=== PATIENT | male | born 1960 | race Two or more races ===

== ENCOUNTER 2017-08-03 13:09 | Emergency (ER) | payer MEDICAID ==
[~2017-08-03] VITALS: Ht 170.2 cm; Wt 77.1 kg
[2017-08-03] MEDS ORDERED: LEVE100023 PO (13:46)
[2017-08-03] MEDS ORDERED: MULT1TAB73 PO (13:46)
[2017-08-03] MEDS ORDERED: HYDR453. TP (13:46)
[2017-08-03] MEDS ORDERED: DIPH25CA83 PO (13:46)
[2017-08-03] MEDS ORDERED: ACET325T53 PO (13:46)
[2017-08-03] MEDS ORDERED: PHEN100C4 PO (13:46)
[2017-08-03] MEDS ORDERED: THIA100T13 PO (13:46)
[2017-08-03] MEDS ORDERED: NICO-670 TD (13:46)
[2017-08-03] MEDS ORDERED: FOLI1TAB16 PO (13:46)
[2017-08-03] MEDS ORDERED: LACO200T2 PO (13:46)
[2017-08-03 16:25] LABS: *BILIRUBIN,URIN NEGATIVE (NEGATIVE); *BLOOD, URINE 3+ (NEGATIVE); *CLARITY,URINE SLIGHTLY CLOUDY (CLEAR); *COLOR,URINE YELLOW (YELLOW); *KETONES,URINE NEGATIVE (NEGATIVE); *PROTEIN,URINE 2+ (NEGATIVE); *UROBILINOGEN,URINE 0.2 E.U./dl (NORMAL); LEUKOCYTE ESTERASE ,URINE 3+ (NEGATIVE); NITRITE, URINE POSITIVE (NEGATIVE); PH,URINE 8.5 (5.0-8.0); UGLUCOSE NEGATIVE (NEGATIVE)
--- NOTE | 2017-08-03 16:45 | NUR ---
AMBULANCE CALLED TRIP NO [id number] QUENCHER OPERATOR [id number]
[2017-08-03 16:55] LABS: BACTERIA,URINE FEW /HPF (NONE SEEN); RBC,URINE 20-50 /HPF (0-3); SQUAMOUS EPITHELIAL CELL,UR FEW /HPF (NONE SEEN)
--- NOTE | 2017-08-03 19:55 | NUR ---
MSE COMPLETED, DR SPENCER CHANGED THE SUPRAPUBIC FOWLEY, I THEN REDRESSED SITE, PLACED A NEW LEG BAG. PT WAS THEN RETURNED TO [facility] VIA AMBULANZE. REPORT GIVEN TO EMT'S, ALSO ACI/RX X1 AND SUMMRY REPORT. PT TOOK ALL BELONGINGS. CALLED [facility] TO GIVE REPORT AT [phone] NO ANSWER AND MAILBOX/MESSAGES FULL.
[2017-08-03 19:58] VITALS: BP 114/85
--- NOTE | 2017-08-07 10:47 | NUR ---
Pt Urine Cx Results came back positive. Results were discussed with . Pt was contacted at [facility]. Pt nurse Britt states that pt is completely asymptomatic. went over the results and antibiotic requirements. Nurse was informed to bring the pt back if pt becomes symptomatic, pt would need IV antibiotic in that case.
[2017-08-19] MEDS ORDERED: CEPH-570 PO (20:40)
[2017-08-23] MEDS ORDERED: AMPI500C11 PO (11:46)
[2017-08-23] MEDS ORDERED: CIPR-262 PO (11:46)
== END 2017-08-03 19:59 | disposition home or self-care (01) ==
LOC: ER 13:13
DX: T83.098A Other mechanical complication of other urinary catheter, initial encounter (principal); N39.0 Urinary tract infection, site not specified; Z79.899 Other long term (current) drug therapy
CPT/HCPCS: 51702; 87077; 87086; A4663

== ENCOUNTER 2017-11-15 18:43 | Inpatient (IN) | payer MEDICAID ==
[~2017-11-15] VITALS: Ht 170.2 cm; Wt 61.2 kg
[~2017-11-15 18:43] MED LIST: ACET325T53 PO; AMPI500C11 PO; CIPR-262 PO; DIPH25CA83 PO; FOLI1TAB16 PO; HYDR453. TP; LACO200T2 PO; LEVE100023 PO; MULT1TAB73 PO; NICO-670 TD; PHEN100C4 PO; THIA100T13 PO
[2017-11-15] MEDS ORDERED: QUET25TA PO (19:03)
[2017-11-15] MEDS ORDERED: CYAN10009 PO (19:03)
[2017-11-15] MEDS ORDERED: PHEN100C4 PO ×2 (19:03)
[2017-11-15] MEDS ORDERED: MULT-661 PO (19:03)
[2017-11-15 19:40] LABS: BASOPHILS # (AUTO) 0.1 K/uL (0.0-8.0); BASOPHILS % (AUTO) 0.7 % (0.0-2.0); EOSINOPHILS # (AUTO) 0.1 K/uL (0.0-0.7); HEMATOCRIT 38.6 % (36.7-47.1); HEMOGLOBIN 12.8 g/dL (12.5-16.3); LYMPHOCYTES # (AUTO) 1.3 K/uL (20.0-40.0); LYMPHOCYTES % (AUTO) 14.1 % (20.5-51.5); MEAN CORPUSCULAR HEMOGLOBIN 28.6 uug (23.8-33.4); MEAN CORPUSCULAR HGB CONC 33 g/dL (32.5-36.3); MEAN CORPUSCULAR VOLUME 86.6 fL (73.0-96.2); MONOCYTES # (AUTO) 0.7 K/uL (2.0-10.0); MONOCYTES % (AUTO) 7.2 % (0.0-11.0); NEUTROPHILS # (AUTO) 7.1 K/uL (1.8-8.9); PLATELET COUNT (AUTO) 339 K/uL (152-348); RED BLOOD CELL COUNT(AUTO) 4.46 MIL/uL (4.06-5.63); WHITE BLOOD COUNT (AUTO) 9.2 K/uL (3.6-10.2)
[2017-11-15 19:54] LABS: POTASSIUM 3.8 mmol/L (3.5-5.1)
[2017-11-15 20:00] LABS: BILIRUBIN,DIRECT 0.1 mg/dL (0.0-0.2); BILIRUBIN,TOTAL 0.3 mg/dL (0.2-1.0); TOTAL PROTEIN, SERUM 8.2 g/dL (6.4-8.2)
[2017-11-15] MEDS ORDERED: MORPHINE SULFATE 4 MG/1 ML DISP.SYRIN ONE (20:11)
[2017-11-15] MEDS ORDERED: ONDANSETRON 4 MG/2 ML VIAL ONE (20:11)
[2017-11-15] MEDS ORDERED: ONDANSETRON 4 MG/2 ML VIAL IV ONE (20:15)
[2017-11-15] MEDS ORDERED: MORPHINE SULFATE 4 MG/1 ML DISP.SYRIN IV ONE (20:15)
[2017-11-15 21:46] LABS: *BILIRUBIN,URIN NEGATIVE (NEGATIVE); *BLOOD, URINE 1+ (NEGATIVE); *CLARITY,URINE CLOUDY (CLEAR); *COLOR,URINE YELLOW (YELLOW); *KETONES,URINE NEGATIVE (NEGATIVE); *PROTEIN,URINE 2+ (NEGATIVE); *UROBILINOGEN,URINE 0.2 E.U./dl (NORMAL); LEUKOCYTE ESTERASE ,URINE 3+ (NEGATIVE); NITRITE, URINE POSITIVE (NEGATIVE); PH,URINE 7.5 (5.0-8.0); UGLUCOSE NEGATIVE (NEGATIVE)
[2017-11-15 22:03] LABS: BACTERIA,URINE MANY /HPF (NONE SEEN); WBC,URINE 80-100 /HPF (0-3)
[2017-11-15 22:04] LABS: TRIPLE PHOSPHATE CRYSTAL,UR MODERATE /HPF (NONE SEEN)
[2017-11-15] MEDS ORDERED: CEFTRIAXONE 1 G in IV DEXTROSE 5% 50 ML IV ONE (22:15)
[2017-11-15] MEDS ORDERED: CEFTRIAXONE 1 G VIAL ONE (22:21)
[2017-11-15 23:34] VITALS: BP 114/77
[2017-11-16] MEDS: diphenhydrAMINE 25 MG CAP PO PRN (01:43)
[2017-11-16 06:20] LABS: CREATININE 1.1 mg/dL (0.6-1.3); POTASSIUM 3.8 mmol/L (3.5-5.1)
[2017-11-16 06:25] LABS: BASOPHILS % (AUTO) 0.5 % (0.0-2.0); EOSINOPHILS # (AUTO) 0.1 K/uL (0.0-0.7); EOSINOPHILS % (AUTO) 1.7 % (0.0-7.0); HEMATOCRIT 37.5 % (36.7-47.1); HEMOGLOBIN 12.6 g/dL (12.5-16.3); LYMPHOCYTES # (AUTO) 1.2 K/uL (20.0-40.0); LYMPHOCYTES % (AUTO) 20.6 % (20.5-51.5); MEAN CORPUSCULAR HEMOGLOBIN 28.6 uug (23.8-33.4); MEAN CORPUSCULAR HGB CONC 34 g/dL (32.5-36.3); MEAN CORPUSCULAR VOLUME 85.4 fL (73.0-96.2); MONOCYTES # (AUTO) 0.6 K/uL (2.0-10.0); NEUTROPHILS # (AUTO) 3.8 K/uL (1.8-8.9); NEUTROPHILS % (AUTO) 66.2 % (38.5-71.5); PLATELET COUNT (AUTO) 312 K/uL (152-348)
[2017-11-16 06:26] LABS: WHITE BLOOD COUNT (AUTO) 5.8 K/uL (3.6-10.2)
[2017-11-16] MEDS ORDERED: diphenhydrAMINE 25 MG CAP PO PRN (07:15)
[2017-11-16] MEDS ORDERED: HYDROCORTISONE 1% CREAM 30 GM TUBE TP PRN (07:15)
[2017-11-16] MEDS: MULTIVITAMINS,THERAPEUTIC TABLET PO SCH (08:48)
[2017-11-16] MEDS: LEVETIRACETAM 500 MG TABLET PO SCH ×2 (08:48→20:30)
[2017-11-16] MEDS: LACOSAMIDE 50 MG TABLET PO SCH ×2 (08:48→20:30)
[2017-11-16] MEDS: ACETAMINOPHEN 325 MG TABLET PO PRN (08:48)
[2017-11-16] MEDS: FOLIC ACID 1 MG TABLET PO SCH (08:48)
[2017-11-16] MEDS: CYANOCOBALAMIN 1,000 MCG TABLET PO SCH (08:49)
[2017-11-16] MEDS: PHENYTOIN SODIUM EXTENDED 100 MG CAPSULE.SA PO SCH ×2 (09:32→20:30)
[2017-11-16 11:01] VITALS: BP 99/50
[2017-11-16 12:22] LABS: *BILIRUBIN,URIN NEGATIVE (NEGATIVE); *BLOOD, URINE 3+ (NEGATIVE); *CLARITY,URINE TURBID (CLEAR); *COLOR,URINE YELLOW (YELLOW); *KETONES,URINE NEGATIVE (NEGATIVE); *PROTEIN,URINE 2+ (NEGATIVE); *UROBILINOGEN,URINE 0.2 E.U./dl (NORMAL); LEUKOCYTE ESTERASE ,URINE 3+ (NEGATIVE); NITRITE, URINE POSITIVE (NEGATIVE); PH,URINE 7.5 (5.0-8.0); UGLUCOSE NEGATIVE (NEGATIVE)
[2017-11-16 12:43] LABS: BACTERIA,URINE MANY /HPF (NONE SEEN); SQUAMOUS EPITHELIAL CELL,UR FEW /HPF (NONE SEEN); WBC,URINE TNTC /HPF (0-3)
[2017-11-16 12:44] LABS: *CREATININE,URINE 161.9 mg/dL (30-125); *URINE TOTAL PROTEIN RANDOM 171.4 mg/dL (<150/24HR); RBC,URINE 20-50 /HPF (0-3); TRIPLE PHOSPHATE CRYSTAL,UR MODERATE /HPF (NONE SEEN)
[2017-11-16 15:02] VITALS: BP 96/48
[2017-11-16 19:18] VITALS: BP 108/65
[2017-11-16] MEDS: QUETIAPINE FUMARATE 25 MG TABLET PO SCH (20:30)
[2017-11-16] MEDS: MUPIROCIN 2% OINT 22 GM TUBE NS SCH (20:31)
[2017-11-16] MEDS: CEFTRIAXONE 1 G in IV DEXTROSE 5% 50 ML IV SCH ×2 (22:10→22:30)
[2017-11-16] MEDS ORDERED: CEFTRIAXONE 2 G in IV DEXTROSE 5% 100 ML IV SCH (22:30)
[2017-11-17] MEDS: ACETAMINOPHEN 325 MG TABLET PO PRN ×3 (01:19→23:41)
[2017-11-17] MEDS: LACOSAMIDE 50 MG TABLET PO SCH ×2 (08:16→20:19)
[2017-11-17] MEDS: MULTIVITAMINS,THERAPEUTIC TABLET PO SCH (08:17)
[2017-11-17] MEDS: PHENYTOIN SODIUM EXTENDED 100 MG CAPSULE.SA PO SCH ×2 (08:17→20:19)
[2017-11-17] MEDS: CYANOCOBALAMIN 1,000 MCG TABLET PO SCH (08:17)
[2017-11-17] MEDS: LEVETIRACETAM 500 MG TABLET PO SCH ×2 (08:17→20:19)
[2017-11-17] MEDS: FOLIC ACID 1 MG TABLET PO SCH (08:17)
[2017-11-17] MEDS: MUPIROCIN 2% OINT 22 GM TUBE NS SCH ×2 (08:18→20:20)
[2017-11-17 11:30] VITALS: BP 93/50
[2017-11-17 19:00] VITALS: BP 103/53
[2017-11-17] MEDS: QUETIAPINE FUMARATE 25 MG TABLET PO SCH (20:19)
[2017-11-17] MEDS ORDERED: IV NS 1000 ML 1,000 ML IV PRN (21:15)
[2017-11-17] MEDS: diphenhydrAMINE 25 MG CAP PO PRN (21:27)
[2017-11-17] MEDS ORDERED: LEVOFLOXACIN 500 MG TABLET PO SCH (21:45)
[2017-11-18] MEDS ORDERED: HYDROMORPHONE 2 MG/1 ML DISP.SYRIN IV PRN (01:30)
[2017-11-18] MEDS: HYDROMORPHONE 2 MG/1 ML DISP.SYRIN IM PRN ×2 (01:48→09:15)
[2017-11-18 04:00] VITALS: BP 102/69
[2017-11-18] MEDS: ACETAMINOPHEN 325 MG TABLET PO PRN (05:50)
[2017-11-18] MEDS: LACOSAMIDE 50 MG TABLET PO SCH (09:08)
[2017-11-18] MEDS: LEVETIRACETAM 500 MG TABLET PO SCH (09:09)
[2017-11-18] MEDS: CYANOCOBALAMIN 1,000 MCG TABLET PO SCH (09:09)
[2017-11-18] MEDS: MULTIVITAMINS,THERAPEUTIC TABLET PO SCH (09:09)
[2017-11-18] MEDS: PHENYTOIN SODIUM EXTENDED 100 MG CAPSULE.SA PO SCH (09:09)
[2017-11-18] MEDS: FOLIC ACID 1 MG TABLET PO SCH (09:09)
[2017-11-18] MEDS: MUPIROCIN 2% OINT 22 GM TUBE NS SCH (09:16)
[2017-11-18 11:19] VITALS: BP 99/48
[2017-11-18] MEDS ORDERED: AMOX-430 PO (14:50)
== END 2017-11-18 15:02 | DRG 466 ==
LOC: ER 18:45 → MED 23:16
PROVIDERS: ADMIT Internal Medicine Nephrology; ATTEND Internal Medicine
PROC: 0T9B70Z Drainage of Bladder with Drainage Device, Via Natural or Artificial Opening (ICD-10-PCS; principal; 2017-11-17)
DX: T83.098A Other mechanical complication of other urinary catheter, initial encounter (principal); G93.41 Metabolic encephalopathy; J94.2 Hemothorax; F03.90 Unspecified dementia, unspecified severity, without behavioral disturbance, psychotic disturbance, mood disturbance, and anxiety; N39.0 Urinary tract infection, site not specified; G40.909 Epilepsy, unspecified, not intractable, without status epilepticus; J47.9 Bronchiectasis, uncomplicated; N13.2 Hydronephrosis with renal and ureteral calculous obstruction; Z87.820 Personal history of traumatic brain injury; Z22.322 Carrier or suspected carrier of Methicillin resistant Staphylococcus aureus; Z90.2 Acquired absence of lung [part of]; Z79.899 Other long term (current) drug therapy; S22.069D Unspecified fracture of T7-T8 vertebra, subsequent encounter for fracture with routine healing; S22.079D Unspecified fracture of T9-T10 vertebra, subsequent encounter for fracture with routine healing; S22.089D Unspecified fracture of T11-T12 vertebra, subsequent encounter for fracture with routine healing; X58.XXXD Exposure to other specified factors, subsequent encounter; T83.028A Displacement of other urinary catheter, initial encounter; B95.2 Enterococcus as the cause of diseases classified elsewhere
CPT/HCPCS: 36415; 70030-TC; 71045; 71250; 76770; 83605; 84156; 84300; 85025; 85730; 87040; 87077; 87086; 93005; A4217; A4663; J0696; J1170; J2270; J2405; J7030; J7040; J7060; Q0163

== ENCOUNTER 2017-12-10 22:53 | Inpatient (IN) | payer MEDICAID ==
[~2017-12-10] VITALS: Ht 167.6 cm; Wt 56.7 kg
[~2017-12-10 22:53] MED LIST changes: +AMOX-430 PO; -AMPI500C11 PO; -CIPR-262 PO; +CYAN10009 PO; +MULT-661 PO; -MULT1TAB73 PO; -NICO-670 TD; +QUET25TA PO; -THIA100T13 PO
--- NOTE | 2017-12-10 23:12 | NUR ---
DR. FIELDS AT BEDSIDE FOR MSE.
[2017-12-10] MEDS ORDERED: THIA100T13 PO (23:22)
[2017-12-11 00:05] LABS: BASOPHILS % (AUTO) 0.3 % (0.0-2.0); EOSINOPHILS # (AUTO) 0.2 K/uL (0.0-0.7); EOSINOPHILS % (AUTO) 3.4 % (0.0-7.0); HEMATOCRIT 40.3 % (36.7-47.1); HEMOGLOBIN 13.3 g/dL (12.5-16.3); LYMPHOCYTES # (AUTO) 1.7 K/uL (20.0-40.0); LYMPHOCYTES % (AUTO) 28.2 % (20.5-51.5); MEAN CORPUSCULAR HEMOGLOBIN 28.3 uug (23.8-33.4); MEAN CORPUSCULAR HGB CONC 33 g/dL (32.5-36.3); MONOCYTES # (AUTO) 0.6 K/uL (2.0-10.0); MONOCYTES % (AUTO) 9.4 % (0.0-11.0); NEUTROPHILS # (AUTO) 3.5 K/uL (1.8-8.9); NEUTROPHILS % (AUTO) 58.7 % (38.5-71.5); PLATELET COUNT (AUTO) 311 K/uL (152-348); RED BLOOD CELL COUNT(AUTO) 4.68 MIL/uL (4.06-5.63); WHITE BLOOD COUNT (AUTO) 5.9 K/uL (3.6-10.2)
[2017-12-11 00:35] LABS: BILIRUBIN,DIRECT 0.1 mg/dL (0.0-0.2); BILIRUBIN,TOTAL 0.3 mg/dL (0.2-1.0); POTASSIUM 4.2 mmol/L (3.5-5.1)
[2017-12-11] MEDS ORDERED: IV NORMAL SALINE 1000 ML BAG IV ONE (00:45)
[2017-12-11 00:51] LABS: *BILIRUBIN,URIN NEGATIVE (NEGATIVE); *BLOOD, URINE 2+ (NEGATIVE); *CLARITY,URINE CLOUDY (CLEAR); *COLOR,URINE YELLOW (YELLOW); *KETONES,URINE NEGATIVE (NEGATIVE); *PROTEIN,URINE 2+ (NEGATIVE); *UROBILINOGEN,URINE 0.2 E.U./dl (NORMAL); LEUKOCYTE ESTERASE ,URINE 2+ (NEGATIVE); NITRITE, URINE POSITIVE (NEGATIVE); PH,URINE 8.5 (5.0-8.0); UGLUCOSE NEGATIVE (NEGATIVE)
[2017-12-11 01:02] LABS: BACTERIA,URINE MODERATE /HPF (NONE SEEN); SQUAMOUS EPITHELIAL CELL,UR FEW /HPF (NONE SEEN); YEAST,URINE MODERATE /HPF (NONE SEEN)
[2017-12-11] MEDS ORDERED: HALOPERIDOL LACTATE 5 MG/1 ML VIAL ONE (01:30)
[2017-12-11] MEDS ORDERED: HALOPERIDOL LACTATE 5 MG/1 ML VIAL IM ONE (01:45)
[2017-12-11] MEDS ORDERED: CEFTRIAXONE 1 G in IV DEXTROSE 5% 50 ML IV ONE (01:45)
--- NOTE | 2017-12-11 01:48 | NUR ---
DR. GARNETT GROUP PAGED, DR. CARLOTA CHUA POOL NURSE, DR. CHUA WAS PAGED, AWAITING CALL BACK.
[2017-12-11] MEDS ORDERED: CEFTRIAXONE 1 G VIAL ONE (01:51)
--- NOTE | 2017-12-11 02:29 | NUR ---
Pt. admitted to MED/SURGE , under care of Dr. CHUA Belongs List completed. REPORT GIVEN TO JENI CHANG.
[2017-12-11] MEDS ORDERED: MORPHINE SULFATE 4 MG/1 ML DISP.SYRIN ONE (02:51)
[2017-12-11] MEDS ORDERED: MORPHINE SULFATE 4 MG/1 ML DISP.SYRIN IV ONE (03:00)
[2017-12-11 03:48] VITALS: BP 104/62
[2017-12-11] MEDS ORDERED: HYDROCODONE/APAP 5-325MG TABLET PO PRN (04:00)
[2017-12-11] MEDS ORDERED: ONDANSETRON 4 MG/2 ML VIAL IV PRN (04:00)
[2017-12-11] MEDS ORDERED: ACETAMINOPHEN 325 MG TABLET PO PRN ×2 (04:00→07:00)
--- NOTE | 2017-12-11 04:00 | NUR ---
RECEIVED PT FROM ER [facility]IA [facility]. UNDER THE CARE OF DR. CARLOTA CHUA. DX: UTI/ABDOMINAL PAIN. PT SHOWS NO SIGNS OF DISTRESS. PT IV INTACT.BELONGING LIST DONE. INTERMEDIATE ASSESSMENT DONE.ADMISSION PROCESS AND CARE PLAN DONE. SAFETY AND COMFORT PROVIDED. CALL LIGHT WITHIN REACH. BED ALARM ON AND IN LOW POSITION. WILL CONTINUE TO MONITOR.
--- NOTE | 2017-12-11 06:28 | NUR ---
PT SLEPT INTERMITTENTLY. PT SHOWS NO SIGNS OF DISTRESS. IV INTACT AND PATENT. SAFETY AND COMFORT PROVIDED. WILL ENDORSE TO DAYSHIFT NURSE FOR CONTINUITY OF CARE.
[2017-12-11] MEDS ORDERED: HYDROCORTISONE 1% CREAM 30 GM TUBE TP PRN (07:00)
[2017-12-11] MEDS ORDERED: diphenhydrAMINE 25 MG CAP PO PRN (07:00)
--- NOTE | 2017-12-11 07:15 | NUR ---
RECEIVED PATIENT IN BED ASLEEP, APPEARS COMFORTABLE. NO ACUTE DISTRESS NOTED. IV ACCESS ON LFA #20 INTACT AND PATENT. SUPRAPUBIC CATH IN PLACE ATTACHED TO URINE BAG, FLOWING FREELY. COMFORT MEASURES PROVIDED. WILL CONTINUE TO MONITOR CLOSELY.
[2017-12-11 07:37] LABS: BASOPHILS # (AUTO) 0.1 K/uL (0.0-8.0); BASOPHILS % (AUTO) 1.2 % (0.0-2.0); EOSINOPHILS # (AUTO) 0.2 K/uL (0.0-0.7); EOSINOPHILS % (AUTO) 3.6 % (0.0-7.0); HEMATOCRIT 37.9 % (36.7-47.1); HEMOGLOBIN 12.4 g/dL (12.5-16.3); LYMPHOCYTES # (AUTO) 1.7 K/uL (20.0-40.0); LYMPHOCYTES % (AUTO) 30.9 % (20.5-51.5); MEAN CORPUSCULAR HEMOGLOBIN 28.7 uug (23.8-33.4); MEAN CORPUSCULAR HGB CONC 33 g/dL (32.5-36.3); MEAN CORPUSCULAR VOLUME 87.9 fL (73.0-96.2); MONOCYTES # (AUTO) 0.5 K/uL (2.0-10.0); MONOCYTES % (AUTO) 9.6 % (0.0-11.0); NEUTROPHILS % (AUTO) 54.7 % (38.5-71.5); PLATELET COUNT (AUTO) 160 K/uL (152-348); RED BLOOD CELL COUNT(AUTO) 4.31 MIL/uL (4.06-5.63); WHITE BLOOD COUNT (AUTO) 5.4 K/uL (3.6-10.2)
[2017-12-11 07:45] LABS: CREATININE 0.8 mg/dL (0.6-1.3); POTASSIUM 3.9 mmol/L (3.5-5.1)
[2017-12-11] MEDS ORDERED: CEFTRIAXONE 1 G VIAL IM SCH (09:00)
[2017-12-11] MEDS: FOLIC ACID 1 MG TABLET PO SCH (09:56)
[2017-12-11] MEDS: THIAMINE HCL 100 MG TABLET PO SCH (09:56)
[2017-12-11] MEDS: PHENYTOIN SODIUM EXTENDED 100 MG CAPSULE.SA PO SCH ×2 (09:57→21:00)
[2017-12-11] MEDS: LEVETIRACETAM 500 MG TABLET PO SCH ×2 (09:57→21:00)
[2017-12-11] MEDS: LACOSAMIDE 50 MG TABLET PO SCH ×2 (09:57→21:00)
[2017-12-11] MEDS: MULTIVITAMINS,THERAPEUTIC TABLET PO SCH (09:57)
[2017-12-11 11:15] VITALS: BP 90/55
[2017-12-11 15:24] VITALS: BP 98/59
--- NOTE | 2017-12-11 18:09 | NUR ---
PATIENT RESISTING IN BED, APPEARS COMFORTABLE. NO ACUTE DISTRESS NOTED. SUPRAPUBIC CATH ATTACHED TO URINE BAG IN PLACE DRAINING WELL. IV SITE INTACT NAD PATENT. ALL NEEDS ATTENDED AND ANTICIPATED. WILL CONTINUE TO MONITOR CLOSELY.
--- NOTE | 2017-12-11 19:45 | NUR ---
Observed to be resting in bed at this time, easily arousable via verbal and tactile stimuli. pt AAO x 2. No s/s of acute distress. Seizure precautions initiated. Safe environment implemented. Call light within reach.
[2017-12-11 20:22] VITALS: BP 99/64
[2017-12-11] MEDS: QUETIAPINE FUMARATE 25 MG TABLET PO SCH (20:48)
--- NOTE | 2017-12-11 21:00 | NUR ---
Pt noted to be easily agitated and refusing seizure medications at this time (Phenytoin, Levetiracetam, Vimpat) Pt deescalated and educated on medications, but still refusing. Will retry to administer medications again later and closely monitor.
--- NOTE | 2017-12-11 23:55 | NUR ---
Pt ambulating around the hallways of unit. Still agitated and refusing to take medications. Pt escorted back to room and safe environment implemented. Will continue to monitor closely.
[2017-12-12] MEDS: CEFTRIAXONE 1 G in IV DEXTROSE 5% 50 ML IV SCH ×2 (01:38→02:53)
--- NOTE | 2017-12-12 01:44 | NUR ---
Pt continues to remain uncooperative with all care. Pt easily agitated and refusing all medications. Pt attempted to deescalate, but keeps insisting to be left alone.
--- NOTE | 2017-12-12 03:00 | NUR ---
Approached by patient and allowed me to administer Rocephin IV. Safe environment implemented.
[2017-12-12 04:25] VITALS: BP 94/65
[2017-12-12 05:43] LABS: EOSINOPHILS # (AUTO) 0.2 K/uL (0.0-0.7); EOSINOPHILS % (AUTO) 3.4 % (0.0-7.0); HEMATOCRIT 36.9 % (36.7-47.1); HEMOGLOBIN 12.2 g/dL (12.5-16.3); LYMPHOCYTES # (AUTO) 1.3 K/uL (20.0-40.0); LYMPHOCYTES % (AUTO) 26.7 % (20.5-51.5); MEAN CORPUSCULAR HEMOGLOBIN 28.3 uug (23.8-33.4); MEAN CORPUSCULAR HGB CONC 33 g/dL (32.5-36.3); MEAN CORPUSCULAR VOLUME 85.6 fL (73.0-96.2); MONOCYTES # (AUTO) 0.5 K/uL (2.0-10.0); MONOCYTES % (AUTO) 9.7 % (0.0-11.0); NEUTROPHILS # (AUTO) 2.9 K/uL (1.8-8.9); NEUTROPHILS % (AUTO) 59.2 % (38.5-71.5); PLATELET COUNT (AUTO) 268 K/uL (152-348); RED BLOOD CELL COUNT(AUTO) 4.31 MIL/uL (4.06-5.63); WHITE BLOOD COUNT (AUTO) 4.9 K/uL (3.6-10.2)
[2017-12-12 05:57] LABS: BILIRUBIN,TOTAL 0.3 mg/dL (0.2-1.0); MAGNESIUM 1.5 mg/dL (1.8-2.4); PHOSPHOROUS 3.1 mg/dL (2.5-4.9); POTASSIUM 3.9 mmol/L (3.5-5.1)
--- NOTE | 2017-12-12 06:24 | NUR ---
Stable condition. Seizure precaution measures initiated. Safe environment at all times. Call light within reach.
[2017-12-12] MEDS: MULTIVITAMINS,THERAPEUTIC TABLET PO SCH ×2 (08:52→12:42)
[2017-12-12] MEDS: FOLIC ACID 1 MG TABLET PO SCH ×2 (08:52→12:43)
[2017-12-12] MEDS: THIAMINE HCL 100 MG TABLET PO SCH ×2 (08:52→12:42)
[2017-12-12] MEDS: LACOSAMIDE 50 MG TABLET PO SCH ×3 (08:52→20:06)
[2017-12-12] MEDS: PHENYTOIN SODIUM EXTENDED 100 MG CAPSULE.SA PO SCH ×3 (08:52→20:06)
[2017-12-12] MEDS: LEVETIRACETAM 500 MG TABLET PO SCH ×3 (08:52→20:06)
[2017-12-12] MEDS ORDERED: CEFTRIAXONE 1 G VIAL IM SCH (09:00)
--- NOTE | 2017-12-12 09:25 | NUR ---
pt refused to take his morning Meds made aware
[2017-12-12] MEDS: MAGNESIUM SULFATE/D5W 100 ML IV SCH ×2 (11:45→11:58)
[2017-12-12 12:35] VITALS: BP 90/60
[2017-12-12 15:09] VITALS: BP 95/64
[2017-12-12 19:00] VITALS: BP 94/58
--- NOTE | 2017-12-12 19:20 | NUR ---
RECEIVED PATIENT ROAMING AROUND THE HALLWAY. AOX1 ONLY. SLIGHTLY ANXIOUS WHEN ASKED A QUESTION. CALM DOWN WHEN LEFT ALONE. IN NO ACUTE DISTRESS. DENIES ANY PAIN OR SOB. IV SITE ON LEFT FA INTACT AND PATENT. SAFETY MEASURE INITIATED.
[2017-12-12] MEDS: QUETIAPINE FUMARATE 25 MG TABLET PO SCH (20:06)
[2017-12-13] MEDS: CEFTRIAXONE 1 G in IV DEXTROSE 5% 50 ML IV SCH (01:16)
[2017-12-13 04:00] VITALS: BP 91/60
--- NOTE | 2017-12-13 06:15 | NUR ---
AOX1 ONLY. ABLE TO MAKE NEEDS KNOWN. SUPRAPUBIC CATHETER REMAINS INTACT AND DRAINING. LEG BAG IN PLACE. PATIENT ABLE TO DRAIN OWN URINARY BAG. DENIES ANY PAIN OR SOB. AMBULATE AD DENISSE. IV SITE ON LEFT FA INTACT AND PATENT. NO ADVERSE REACTION NOTED FROM IV ABX. SAFETY MEASURE MAINTAINED AND CALL RICHARDS WITHIN REACH.
[2017-12-13 07:05] LABS: MAGNESIUM 1.7 mg/dL (1.8-2.4); POTASSIUM 4.1 mmol/L (3.5-5.1)
--- NOTE | 2017-12-13 07:36 | NUR ---
Awake, alert, calm, cooperative with care at this time
[2017-12-13] MEDS ORDERED: CEPH-569 PO (08:33)
[2017-12-13 11:20] VITALS: BP 105/66
[2017-12-13] MEDS: PHENYTOIN SODIUM EXTENDED 100 MG CAPSULE.SA PO SCH (12:10)
[2017-12-13] MEDS: MULTIVITAMINS,THERAPEUTIC TABLET PO SCH (12:10)
[2017-12-13] MEDS: FOLIC ACID 1 MG TABLET PO SCH (12:10)
[2017-12-13] MEDS: LEVETIRACETAM 500 MG TABLET PO SCH (12:10)
[2017-12-13] MEDS: THIAMINE HCL 100 MG TABLET PO SCH (12:11)
[2017-12-13] MEDS: LACOSAMIDE 50 MG TABLET PO SCH (12:11)
--- NOTE | 2017-12-13 13:41 | NUR ---
With discharge order, coordinated back to [facility]. Saline lock removed. DC instruction given to patient, verbalized understanding. Went home in fair condition, not in distress, afebrile, per ambulatory per patient's request, accompanied by LINE TESTER, picked up by [facility] personnel
== END 2017-12-13 13:35 | DRG 463 ==
LOC: ER 22:55 → MED 12-11 03:00
PROVIDERS: ADMIT Internal Medicine Nephrology; ATTEND Internal Medicine Nephrology
DX: N13.6 Pyonephrosis (principal); G92 Toxic encephalopathy; N30.00 Acute cystitis without hematuria; N31.9 Neuromuscular dysfunction of bladder, unspecified; F03.90 Unspecified dementia, unspecified severity, without behavioral disturbance, psychotic disturbance, mood disturbance, and anxiety; Z87.440 Personal history of urinary (tract) infections; G40.909 Epilepsy, unspecified, not intractable, without status epilepticus; N18.9 Chronic kidney disease, unspecified; B96.5 Pseudomonas (aeruginosa) (mallei) (pseudomallei) as the cause of diseases classified elsewhere; B95.2 Enterococcus as the cause of diseases classified elsewhere; N26.1 Atrophy of kidney (terminal); M48.54XS Collapsed vertebra, not elsewhere classified, thoracic region, sequela of fracture; N20.0 Calculus of kidney
CPT/HCPCS: 36415; 76870; 83690; 83735; 84100; 85025; 85730; 87077; 87086; 93005; A4663; J0696; J1630; J2270; J7030; J7050; J7060; Q0163

== ENCOUNTER 2017-12-16 21:32 | Emergency (ER) | payer MEDICAID ==
[~2017-12-16] VITALS: Ht 167.6 cm; Wt 59.0 kg
[~2017-12-16 21:32] MED LIST changes: -AMOX-430 PO; +CEPH-569 PO; -CYAN10009 PO; +THIA100T13 PO
[2017-12-16] MEDS ORDERED: VITAMIN B1 100 MG (21:39)
[2017-12-16] MEDS ORDERED: PHENAZOPYRIDINE HCL 100 MG TABLET PO ONE (22:00)
[2017-12-16 22:14] LABS: BASOPHILS # (AUTO) 0.1 K/uL (0.0-8.0); EOSINOPHILS # (AUTO) 0.2 K/uL (0.0-0.7); EOSINOPHILS % (AUTO) 3.4 % (0.0-7.0); HEMATOCRIT 35.1 % (36.7-47.1); HEMOGLOBIN 11.8 g/dL (12.5-16.3); LYMPHOCYTES # (AUTO) 1.6 K/uL (20.0-40.0); LYMPHOCYTES % (AUTO) 24.8 % (20.5-51.5); MEAN CORPUSCULAR HEMOGLOBIN 29.5 uug (23.8-33.4); MEAN CORPUSCULAR HGB CONC 34 g/dL (32.5-36.3); MEAN CORPUSCULAR VOLUME 87.3 fL (73.0-96.2); MONOCYTES # (AUTO) 0.6 K/uL (2.0-10.0); MONOCYTES % (AUTO) 10.1 % (0.0-11.0); NEUTROPHILS # (AUTO) 3.8 K/uL (1.8-8.9); NEUTROPHILS % (AUTO) 60.7 % (38.5-71.5); PLATELET COUNT (AUTO) 270 K/uL (152-348); RED BLOOD CELL COUNT(AUTO) 4.02 MIL/uL (4.06-5.63); WHITE BLOOD COUNT (AUTO) 6.3 K/uL (3.6-10.2)
[2017-12-16] MEDS ORDERED: PHENAZOPYRIDINE HCL 100 MG TABLET ONE (22:17)
[2017-12-16 22:29] LABS: ALANINE AMINOTRANSFERASE 17 U/L (16-63); ALKALINE PHOSPHATASE 132 U/L (50-136); ASPARTATE AMINOTRANSFERASE 20 U/L (15-37); BILIRUBIN,DIRECT < 0.1 mg/dL (0.0-0.2); BILIRUBIN,TOTAL 0.1 mg/dL (0.2-1.0); CARBON DIOXIDE 31 mmol/L (21-32); CHLORIDE 104 mmol/L (98-107); CREATININE 1.1 mg/dL (0.6-1.3); GLUCOSE 91 mg/dL (74-106); POTASSIUM 4.2 mmol/L (3.5-5.1); TOTAL PROTEIN, SERUM 7.4 g/dL (6.4-8.2); UREA NITROGEN, BLOOD 21 mg/dL (7-18)
[2017-12-16 22:48] LABS: *BLOOD, URINE 2+ (NEGATIVE); *CLARITY,URINE CLEAR (CLEAR); *COLOR,URINE YELLOW (YELLOW); *KETONES,URINE NEGATIVE (NEGATIVE); *PROTEIN,URINE 2+ (NEGATIVE); *UROBILINOGEN,URINE 0.2 E.U./dl (NORMAL); LEUKOCYTE ESTERASE ,URINE 3+ (NEGATIVE); NITRITE, URINE NEGATIVE (NEGATIVE); PH,URINE 7.5 (5.0-8.0); UGLUCOSE NEGATIVE (NEGATIVE)
[2017-12-16 22:49] LABS: *BILIRUBIN,URIN 1+ (NEGATIVE)
[2017-12-16 23:15] LABS: WBC,URINE 50-80 /HPF (0-3)
[2017-12-16] MEDS ORDERED: LORAZEPAM 0.5 MG TABLET PO ONE (23:15)
[2017-12-16] MEDS ORDERED: SULFAMETH/TRIMETH 800/160 MG TABLET PO ONE (23:15)
[2017-12-16 23:16] LABS: BACTERIA,URINE MODERATE /HPF (NONE SEEN); SQUAMOUS EPITHELIAL CELL,UR FEW /HPF (NONE SEEN)
[2017-12-16] MEDS ORDERED: SULFAMETH/TRIMETH 800/160 MG TABLET ONE (23:21)
--- NOTE | 2017-12-16 23:21 | NUR ---
CALLED N[facility] TO TRANSPORT PT BACK TO [facility]). ETA 90 MIN @ 0015. TRIP #[id number]
[2017-12-16] MEDS ORDERED: LORAZEPAM 1 MG TABLET ONE (23:28)
--- NOTE | 2017-12-17 00:02 | NUR ---
Patient discharged to home in stable conditon. Written and verbal after care instructions given. Patient verbalizes understanding of instructions. Pt picked up by sheri Dong to be brought back to [facility]. All belongings with pt. VSS. NAD noted.
[2017-12-17 00:04] VITALS: BP 108/67
[2017-12-18] MEDS ORDERED: PHEN-705 PO (21:26)
[2017-12-18] MEDS ORDERED: SULF1TAB48 PO (21:26)
[2017-12-18] MEDS ORDERED: ZOLP5TAB2 PO (21:26)
== END 2017-12-17 00:05 | disposition home or self-care (01) ==
LOC: ER 21:34
DX: N39.0 Urinary tract infection, site not specified (principal)
CPT/HCPCS: 36415; 70030-TC; 85025; 85730; 87077; 87086; A4663

== ENCOUNTER 2017-12-18 20:07 | Inpatient (IN) | payer MEDICAID ==
[~2017-12-18] VITALS: Ht 177.8 cm; Wt 68.0 kg
[~2017-12-18 20:07] MED LIST changes: +VITAMIN B1 100 MG
--- NOTE | 2017-12-18 20:10 | NUR ---
PT IS A/OX4, RESPONSIVE TO VERBAL AND TACTILE STIMULI. PT IS AMBULATORY WITHOUT DIFFICULTY. PT C/O 10/10 PAIN IN HIS SUPRAPUBIC CATH INSERTION SITE. PAIN IS CONSTANT AND STARTED TODAY. UPON ASSESSMENT, INSERTION SITE IS NOT RED, SWOLLEN, AND NO DRAINAGE PRESENT. VSS. PT IN BED, BED IN LOW AND LOCKED POSITION WITH BILATERAL SIDERAILSX2 UP.
[2017-12-18 20:35] LABS: HEMOGLOBIN 12.8 g/dL (12.5-16.3); MEAN CORPUSCULAR VOLUME 87.2 fL (73.0-96.2); RED BLOOD CELL COUNT(AUTO) 4.47 MIL/uL (4.06-5.63); WHITE BLOOD COUNT (AUTO) 5.5 K/uL (3.6-10.2)
[2017-12-18 20:36] LABS: BASOPHILS % (AUTO) 0.8 % (0.0-2.0); EOSINOPHILS # (AUTO) 0.2 K/uL (0.0-0.7); LYMPHOCYTES # (AUTO) 1.4 K/uL (20.0-40.0); LYMPHOCYTES % (AUTO) 24.8 % (20.5-51.5); MEAN CORPUSCULAR HEMOGLOBIN 28.7 uug (23.8-33.4); MEAN CORPUSCULAR HGB CONC 33 g/dL (32.5-36.3); MONOCYTES # (AUTO) 0.5 K/uL (2.0-10.0); NEUTROPHILS # (AUTO) 3.3 K/uL (1.8-8.9); NEUTROPHILS % (AUTO) 60.4 % (38.5-71.5); PLATELET COUNT (AUTO) 277 K/uL (152-348)
[2017-12-18 20:38] LABS: *BILIRUBIN,URIN NEGATIVE (NEGATIVE); *BLOOD, URINE 1+ (NEGATIVE); *COLOR,URINE Orange (YELLOW); *KETONES,URINE NEGATIVE (NEGATIVE); NITRITE, URINE POSITIVE (NEGATIVE); PH,URINE 6.5 (5.0-8.0)
[2017-12-18 20:44] LABS: CREATININE 1.1 mg/dL (0.6-1.3); POTASSIUM 4.2 mmol/L (3.5-5.1)
[2017-12-18 20:49] LABS: BILIRUBIN,TOTAL 0.2 mg/dL (0.2-1.0)
[2017-12-18 21:05] LABS: *CLARITY,URINE HAZY (CLEAR)
[2017-12-18 21:06] LABS: *PROTEIN,URINE 1+ (NEGATIVE); LEUKOCYTE ESTERASE ,URINE 2+ (NEGATIVE); UGLUCOSE NEGATIVE (NEGATIVE)
[2017-12-18 21:10] LABS: BACTERIA,URINE MODERATE /HPF (NONE SEEN)
[2017-12-18 21:11] LABS: URINE AMORPHOUS PHOSPHATES MODERATE /HPF; YEAST,URINE FEW /HPF (NONE SEEN)
[2017-12-18 21:12] LABS: MUCUS,URINE FEW /LPF (0-FEW)
--- NOTE | 2017-12-18 21:21 | NUR ---
CALLED VIP PANEL RE PT'S ADMISSION. DR. CONKLIN WAS PAGED, AWAITING CALL-BACK.
[2017-12-18] MEDS ORDERED: CEFTRIAXONE 1 G VIAL ONE (21:24)
[2017-12-18] MEDS ORDERED: SULF1TAB48 PO (21:26)
[2017-12-18] MEDS ORDERED: PHEN-705 PO (21:26)
[2017-12-18] MEDS ORDERED: ZOLP5TAB2 PO (21:26)
--- NOTE | 2017-12-18 21:27 | NUR ---
Dr Bush spoke with Krystle Lopez about admitting patient. Dr [facility] Page Epp[facility] panel. Waiting for Dayana Cr MILK BOTTLING MACHINE OPERATOR to call back
[2017-12-18] MEDS ORDERED: CEFTRIAXONE 1 G in IV DEXTROSE 5% 50 ML IV ONE (21:30)
--- NOTE | 2017-12-18 21:31 | NUR ---
Dr Bush speaking with Dayana Cr RIB CLOTH KNITTER software test automation [facility]
--- NOTE | 2017-12-18 22:33 | NUR ---
PT WILL ADMITTED TO TELE UNDER THE CARE OF IRIS STONE NP.
--- NOTE | 2017-12-18 22:37 | NUR ---
GAVE ADMITTING REPORT TO RN, TOMA ON TELE FLOOR.
[2017-12-18] MEDS ORDERED: Z GUARD REMEDY PASTE 57 GM TUBE TOP PRN (22:45)
[2017-12-18] MEDS ORDERED: ONDANSETRON 4 MG/2 ML VIAL IV PRN (22:45)
[2017-12-18] MEDS ORDERED: MAGNESIUM HYDROXIDE 30 ML LIQUID UDC PO PRN (22:45)
[2017-12-18] MEDS ORDERED: HYDROCORTISONE 1% CREAM 30 GM TUBE TP PRN (22:45)
--- NOTE | 2017-12-18 22:48 | NUR ---
Pt. admitted to [facility] , under care of IRIS STONE NP. Belongs List completed. MRSA SWAB DONE.
--- NOTE | 2017-12-18 22:50 | NUR ---
Received patient from ER in stable condition with no acute distress. Admit Dx of UTI under CARE WORKER Jessa Cr. From [facility]. Upon admission patient refusing all care. Refused vital sign check, refused tele monitor placement, & is refusing to have IV fluids. Will inform MD supervisor car installations. Pertinent assessment completed. Noted with Left forearm 20G IV site. Patient has a suprapubic cath with dubose bag hanging on RLE. Patient is ambulatory with steady gait. Patient to be on ATB Rocephin for UTI. Call light within reach. Will continue to monitor through shift.
[2017-12-18 23:32] VITALS: BP 109/70
--- NOTE | 2017-12-18 23:33 | NUR ---
Patient allowed for us to apply tele monitor & check vital signs at this time. Currently sinus rhythm with HR of 84. Vital signs within normal limits. Will continue to monitor through shift.
[2017-12-18] MEDS: LEVETIRACETAM 500 MG TABLET PO SCH (23:36)
--- NOTE | 2017-12-19 00:12 | NUR ---
New order from MD Barrera for Ativan 1mg PO x1 dose for agitation & restlessness. Will carry out order & continue to monitor.
[2017-12-19] MEDS ORDERED: LORAZEPAM 1 MG TABLET PO ONE (00:15)
[2017-12-19] MEDS: ACETAMINOPHEN 325 MG TABLET PO PRN ×2 (01:00→08:04)
[2017-12-19] MEDS: IV NS 1000 ML 1,000 ML IV PRN ×2 (01:21→12:40)
[2017-12-19] MEDS: HYDROCODONE/APAP 5-325MG TABLET PO PRN ×3 (04:55→22:45)
[2017-12-19 05:10] VITALS: BP 100/59
--- NOTE | 2017-12-19 06:27 | NUR ---
Patient slept intermittently through the shift. Complaints of perineal pain intermittently. Administered Pain meds per MD order. vital signs stable. Sinus rhythm on tele monitor. All needs attended to. Will endorse to day shift nurse.
[2017-12-19] MEDS ORDERED: HYDROCORTISONE 1% CREAM 30 GM TUBE TP PRN (07:15)
--- NOTE | 2017-12-19 07:30 | NUR ---
RECVD SHIFT REPORT. PATIENT RECEVD AWAKE AND ALERT AMBULATING IN ROOM, REPORTS PAIN, PATIENT DID NOT WANT TO SCALE, IRRITABLE UPON APPROACH. REQUESTING PAIN MEDICATION,
[2017-12-19 08:00] LABS: BASOPHILS % (AUTO) 0.9 % (0.0-2.0); EOSINOPHILS # (AUTO) 0.2 K/uL (0.0-0.7); EOSINOPHILS % (AUTO) 4.4 % (0.0-7.0); HEMOGLOBIN 13.2 g/dL (12.5-16.3); LYMPHOCYTES # (AUTO) 1.4 K/uL (20.0-40.0); LYMPHOCYTES % (AUTO) 28.6 % (20.5-51.5); MEAN CORPUSCULAR HEMOGLOBIN 29.1 uug (23.8-33.4); MEAN CORPUSCULAR HGB CONC 33 g/dL (32.5-36.3); MONOCYTES # (AUTO) 0.4 K/uL (2.0-10.0); MONOCYTES % (AUTO) 8.4 % (0.0-11.0); NEUTROPHILS # (AUTO) 2.8 K/uL (1.8-8.9); NEUTROPHILS % (AUTO) 57.7 % (38.5-71.5); PLATELET COUNT (AUTO) 278 K/uL (152-348); RED BLOOD CELL COUNT(AUTO) 4.54 MIL/uL (4.06-5.63); WHITE BLOOD COUNT (AUTO) 4.8 K/uL (3.6-10.2)
[2017-12-19] MEDS: LEVETIRACETAM 500 MG TABLET PO SCH ×2 (08:04→20:00)
[2017-12-19] MEDS: ENOXAPARIN SODIUM 40 MG/0.4 ML DISP.SYRIN SQ SCH ×2 (08:04→09:00)
[2017-12-19] MEDS: MULTIVITAMINS,THERAPEUTIC TABLET PO SCH (08:04)
[2017-12-19] MEDS: FOLIC ACID 1 MG TABLET PO SCH (08:04)
[2017-12-19] MEDS: THIAMINE HCL 100 MG TABLET PO SCH (08:04)
--- NOTE | 2017-12-19 08:12 | NUR ---
PATIENT PROVIDED WITH PAIN PRN MED TYLENOL, PATIENT IS IRRITABLE AND GUARDED, PATIENT REMOVED TELE BOX, REFUSES TO HAVE PLACED BACK ON, PATIENT EDUCATED CONTINUES TO REFUSE UNABLE TO REDIRECT AT THIS TIME, SUSPICIOUS. WILL CONTINUE TO REDIRECT AND EDUCATE.
[2017-12-19 08:28] LABS: CREATININE 1.1 mg/dL (0.6-1.3); MAGNESIUM 1.8 mg/dL (1.8-2.4); PHOSPHOROUS 3.2 mg/dL (2.5-4.9); POTASSIUM 3.9 mmol/L (3.5-5.1)
[2017-12-19] MEDS ORDERED: PHENYTOIN SODIUM EXTENDED 100 MG CAPSULE.SA PO SCH ×2 (09:00→18:00)
[2017-12-19 11:32] VITALS: BP 105/67
[2017-12-19] MEDS: LACOSAMIDE 50 MG TABLET PO SCH ×4 (12:36→20:00)
[2017-12-19] MEDS: MEROPENEM 500 MG in IV NORMAL SALINE 50 ML IV SCH ×2 (12:36→20:00)
[2017-12-19 15:45] VITALS: BP 89/50
--- NOTE | 2017-12-19 18:11 | NUR ---
Patient intermittently cooperative with care, labile moods throughout the day. Patient ambulates in halls with steady gait. Compliant with meds with redirection. Currently patient in room, no distress noted at this time.
[2017-12-19 19:00] VITALS: BP 100/67
--- NOTE | 2017-12-19 19:30 | NUR ---
Patient noted to be sleeping at start of shift. Easily arousable with no acute distress. Vital signs within normal limits. IV fluids running into left upper arm at 75cc/hr. No signs of infiltration or swelling noted. Suprapubic cath site is clean, dry, intact. No signs of infection noted at site. On ATB therapy for UTI. Will continue to monitor through shift.
[2017-12-19] MEDS ORDERED: QUETIAPINE FUMARATE 25 MG TABLET PO SCH (21:00)
--- NOTE | 2017-12-19 21:45 | NUR ---
Patient seen by David Murry (urology). Suprapubic cath changed at bedside by . Patient tolerated well. Will continue to monitor through shift.
[2017-12-19] MEDS ORDERED: CEFTRIAXONE 1 G in IV DEXTROSE 5% 50 ML IV SCH (22:00)
--- NOTE | 2017-12-20 02:05 | NUR ---
Patient screaming & shouting 10/10 pain in suprapubic area. Paged production graphic designer Dr. Barrera with new order for Morphine 2mg IV every 6 hours PRN. Will carry out order & reassess pain level.
[2017-12-20] MEDS ORDERED: MORPHINE SULFATE 4 MG/1 ML DISP.SYRIN IV PRN (02:15)
[2017-12-20 04:00] VITALS: BP 86/50
[2017-12-20] MEDS: IV NS 1000 ML 1,000 ML IV PRN (04:21)
[2017-12-20] MEDS: MEROPENEM 500 MG in IV NORMAL SALINE 50 ML IV SCH ×2 (04:21→13:15)
[2017-12-20 06:25] LABS: BASOPHILS % (AUTO) 1.2 % (0.0-2.0); EOSINOPHILS # (AUTO) 0.2 K/uL (0.0-0.7); EOSINOPHILS % (AUTO) 4.2 % (0.0-7.0); HEMATOCRIT 36.5 % (36.7-47.1); HEMOGLOBIN 11.9 g/dL (12.5-16.3); LYMPHOCYTES # (AUTO) 1.5 K/uL (20.0-40.0); LYMPHOCYTES % (AUTO) 35.7 % (20.5-51.5); MEAN CORPUSCULAR HEMOGLOBIN 28.7 uug (23.8-33.4); MEAN CORPUSCULAR HGB CONC 33 g/dL (32.5-36.3); MEAN CORPUSCULAR VOLUME 87.9 fL (73.0-96.2); MONOCYTES # (AUTO) 0.4 K/uL (2.0-10.0); MONOCYTES % (AUTO) 10.4 % (0.0-11.0); NEUTROPHILS # (AUTO) 2.1 K/uL (1.8-8.9); NEUTROPHILS % (AUTO) 48.5 % (38.5-71.5); PLATELET COUNT (AUTO) 251 K/uL (152-348); RED BLOOD CELL COUNT(AUTO) 4.15 MIL/uL (4.06-5.63); WHITE BLOOD COUNT (AUTO) 4.3 K/uL (3.6-10.2)
[2017-12-20 06:44] LABS: MAGNESIUM 1.6 mg/dL (1.8-2.4); PHOSPHOROUS 3.5 mg/dL (2.5-4.9); POTASSIUM 4.1 mmol/L (3.5-5.1)
--- NOTE | 2017-12-20 06:58 | NUR ---
Patient slept well after Morphine administered. Pain reassessed & relieved. Compliant with care. All needs attended to. Medications administered per MD order. Safety & comfort measures provided. Call light within reach. Will endorse to oncoming shift.
[2017-12-20] MEDS: FOLIC ACID 1 MG TABLET PO SCH ×2 (09:00→09:48)
[2017-12-20] MEDS: LEVETIRACETAM 500 MG TABLET PO SCH ×2 (09:00→09:49)
[2017-12-20] MEDS: MULTIVITAMINS,THERAPEUTIC TABLET PO SCH ×2 (09:00→09:48)
[2017-12-20] MEDS: ENOXAPARIN SODIUM 40 MG/0.4 ML DISP.SYRIN SQ SCH (09:00)
[2017-12-20] MEDS: THIAMINE HCL 100 MG TABLET PO SCH ×2 (09:00→09:47)
[2017-12-20] MEDS: LACOSAMIDE 50 MG TABLET PO SCH ×2 (09:00→09:49)
[2017-12-20] MEDS ORDERED: MAGNESIUM OXIDE 400 MG TABLET PO ONE (09:30)
[2017-12-20] MEDS ORDERED: MERO500V IV (11:39)
[2017-12-20 11:52] VITALS: BP 113/77
--- NOTE | 2017-12-20 15:06 | NUR ---
Patient was given discharge instructions, iv removed, and leg bag applied for suprapubic catheter. Patient was walked down to discharge area and picked up by industrial truck driver from [facility].
[2017-12-20] MEDS ORDERED: ATORVASTATIN 20 MG TABLET PO SCH (21:00)
== END 2017-12-20 14:55 | DRG 466 ==
LOC: ER 20:09 → TELE 22:08 → MED 12-19 10:00
PROVIDERS: ADMIT Nurse Practitioner Acute Care; ATTEND Nurse Practitioner Acute Care
PROC: 0T9B70Z Drainage of Bladder with Drainage Device, Via Natural or Artificial Opening (ICD-10-PCS; principal; 2017-12-19)
PROC: 0TPBX0Z Removal of Drainage Device from Bladder, External Approach (ICD-10-PCS; principal; 2017-12-19)
DX: T83.518A Infection and inflammatory reaction due to other urinary catheter, initial encounter (principal); G93.41 Metabolic encephalopathy; N30.90 Cystitis, unspecified without hematuria; N31.9 Neuromuscular dysfunction of bladder, unspecified; F03.90 Unspecified dementia, unspecified severity, without behavioral disturbance, psychotic disturbance, mood disturbance, and anxiety; B96.5 Pseudomonas (aeruginosa) (mallei) (pseudomallei) as the cause of diseases classified elsewhere; B95.2 Enterococcus as the cause of diseases classified elsewhere; G40.909 Epilepsy, unspecified, not intractable, without status epilepticus; Z87.440 Personal history of urinary (tract) infections; N13.2 Hydronephrosis with renal and ureteral calculous obstruction; E86.0 Dehydration; Z87.820 Personal history of traumatic brain injury; S22.089G Unspecified fracture of T11-T12 vertebra, subsequent encounter for fracture with delayed healing; X58.XXXD Exposure to other specified factors, subsequent encounter; E78.5 Hyperlipidemia, unspecified; N18.9 Chronic kidney disease, unspecified; Y73.8 Miscellaneous gastroenterology and urology devices associated with adverse incidents, not elsewhere classified; Y92.099 Unspecified place in other non-institutional residence as the place of occurrence of the external cause
CPT/HCPCS: 36415; 83735; 84100; 85025; 87077; 87086; A4217; A4663; J0696; J1650; J2185; J2270; J3490; J7030; J7060

== ENCOUNTER 2018-01-11 01:15 | Emergency (ER) | payer MEDICAID ==
[~2018-01-11] VITALS: Ht 170.2 cm; Wt 66.2 kg
[~2018-01-11 01:15] MED LIST changes: -CEPH-569 PO; +MERO500V IV; +PHEN-705 PO; +ZOLP5TAB2 PO
--- NOTE | 2018-01-11 01:30 | NUR ---
patient to ed with c/o malfunctioning supra pubic catheter. catheter is 18fr, no bleeding from site-- noted urine leaking from around entrance of catheter
[2018-01-11] MEDS ORDERED: FOLIC ACID 1000 MCG (01:32)
[2018-01-11] MEDS ORDERED: PHENYTOIN EX CAP 100MG (01:32)
--- NOTE | 2018-01-11 02:30 | NUR ---
dr jerry to placed #18 fr catheter to pelvic ostomy. patient tolerated procedure
--- NOTE | 2018-01-11 05:05 | NUR ---
patient given dc instructions, rx with epic
[2018-01-11 05:07] VITALS: BP 117/56
[2018-01-12] MEDS ORDERED: SULF1TAB48 PO (22:56)
== END 2018-01-11 05:08 | disposition home or self-care (01) ==
LOC: ER 01:18
DX: T83.031A Leakage of indwelling urethral catheter, initial encounter (principal)
CPT/HCPCS: 51702; 99284; A4663

== ENCOUNTER 2018-01-12 22:25 | Inpatient (IN) | payer MEDICAID ==
[~2018-01-12] VITALS: Ht 342.9 cm; Wt 52.7 kg
[~2018-01-12 22:25] MED LIST changes: +FOLIC ACID 1000 MCG; +PHENYTOIN EX CAP 100MG
[2018-01-12] MEDS ORDERED: SULF1TAB48 PO (22:56)
--- NOTE | 2018-01-12 23:11 | NUR ---
Pt was brought in by EMS for complaints of penile pain. Pt was awake, alert, oriented x2. Turkish speaking. No sob noted. No s/sx of distress noted. Resp even and unlabored. Penile tenderness noted, guarding. No discharge, redness, swelling, cut to penile area noted. Suprapubic cath draining to gravity to leg bag noted. Changed bag. Suprapubic cath site C/D/I. Dressing C/D/I. Pt wants something to eat and drink. Per MD, keep patient NPO at this time. Made pt aware. Pt is currently watching tv. Lab at bedside. Will cont to monitor.
[2018-01-12 23:22] LABS: *BILIRUBIN,URIN NEGATIVE (NEGATIVE); *BLOOD, URINE 2+ (NEGATIVE); *COLOR,URINE YELLOW (YELLOW); *KETONES,URINE NEGATIVE (NEGATIVE); *PROTEIN,URINE NEGATIVE (NEGATIVE); *UROBILINOGEN,URINE 0.2 E.U./dl (NORMAL); LEUKOCYTE ESTERASE ,URINE 1+ (NEGATIVE); NITRITE, URINE NEGATIVE (NEGATIVE); UGLUCOSE NEGATIVE (NEGATIVE)
[2018-01-12 23:31] LABS: BASOPHILS # (AUTO) 0.1 K/uL (0.0-8.0); BASOPHILS % (AUTO) 0.9 % (0.0-2.0); EOSINOPHILS # (AUTO) 0.2 K/uL (0.0-0.7); EOSINOPHILS % (AUTO) 3.6 % (0.0-7.0); HEMATOCRIT 38.7 % (36.7-47.1); HEMOGLOBIN 12.6 g/dL (12.5-16.3); LYMPHOCYTES # (AUTO) 1.6 K/uL (20.0-40.0); LYMPHOCYTES % (AUTO) 23.3 % (20.5-51.5); MEAN CORPUSCULAR HEMOGLOBIN 28.8 uug (23.8-33.4); MEAN CORPUSCULAR HGB CONC 33 g/dL (32.5-36.3); MEAN CORPUSCULAR VOLUME 88.2 fL (73.0-96.2); MONOCYTES # (AUTO) 0.8 K/uL (2.0-10.0); MONOCYTES % (AUTO) 12.3 % (0.0-11.0); NEUTROPHILS % (AUTO) 59.9 % (38.5-71.5); PLATELET COUNT (AUTO) 264 K/uL (152-348); RED BLOOD CELL COUNT(AUTO) 4.39 MIL/uL (4.06-5.63); WHITE BLOOD COUNT (AUTO) 6.7 K/uL (3.6-10.2)
[2018-01-12 23:37] LABS: *CLARITY,URINE HAZY (CLEAR)
[2018-01-12 23:40] LABS: CREATININE 0.9 mg/dL (0.6-1.3)
[2018-01-12 23:42] LABS: WBC,URINE 20-50 /HPF (0-3)
[2018-01-12 23:43] LABS: BACTERIA,URINE MODERATE /HPF (NONE SEEN); SQUAMOUS EPITHELIAL CELL,UR FEW /HPF (NONE SEEN)
[2018-01-12 23:51] LABS: BILIRUBIN,DIRECT 0.1 mg/dL (0.0-0.2); BILIRUBIN,TOTAL 0.2 mg/dL (0.2-1.0); TOTAL PROTEIN, SERUM 7.8 g/dL (6.4-8.2)
--- NOTE | 2018-01-13 00:08 | NUR ---
Call placed to [facility] Nephrology, Dr. Ford will be paged.
[2018-01-13] MEDS ORDERED: AMPICILLIN IV 1 G in IV NORMAL SALINE 50 ML IV ONE (00:15)
[2018-01-13] MEDS ORDERED: PIPERACILLIN SODIUM/TAZOBACTAM 3.375 G in IV DEXTROSE 5% 50 ML IV ONE (00:15)
[2018-01-13] MEDS ORDERED: IV NORMAL SALINE 500 ML BAG IV ONE (00:15)
[2018-01-13] MEDS ORDERED: MORPHINE SULFATE 2 MG/1 ML DISP.SYRIN IV ONE (00:15)
[2018-01-13] MEDS ORDERED: PIPERACILLIN/TAZOBACTAM/D5W 50 ML IV ONE ×2 (00:33→04:39)
[2018-01-13] MEDS ORDERED: AMPICILLIN 1 G VIAL ONE (00:33)
--- NOTE | 2018-01-13 00:48 | NUR ---
Report given to JENI Li
--- NOTE | 2018-01-13 01:00 | NUR ---
IV removed d/t infiltrate. Cool to touch. Catheter intact. Pressure and 4x4 gauze applied to site. No bleeding noted. Will cont to monitor.
--- NOTE | 2018-01-13 01:50 | NUR ---
ADMITTED A 57 YEARS OLD MALE WITH DIAGNOSIS OF UTI. PATIENT AAOX3. SLIGHTLY ANXIOUS BUT ABLE TO REDIRECT PATIENT. IV SITE ON RIGHT FA INTACT AND PATENT. SUPRAPUBIC CATHETER INTACT AND DRAINING VIA GRAVITY. PATIENT ABLE TO EMPTY LEG BAG INDEPENDENTLY. DENIES ANY PAIN OR SOB AT THIS TIME. ROUTINE ADMISSION CARE DONE. PLAN OF CARE INITIATED. SAFETY MEASURE INITIATED AND CALL RICHARDS WITHIN REACH.
[2018-01-13 02:00] VITALS: BP 91/63
--- NOTE | 2018-01-13 02:03 | NUR ---
Pt. admitted to [facility] , under care of Dr. Ford Belongs List completed
[2018-01-13] MEDS ORDERED: ONDANSETRON 4 MG/2 ML VIAL IV PRN (02:30)
[2018-01-13] MEDS ORDERED: ACETAMINOPHEN 325 MG TABLET PO PRN ×2 (02:30→07:45)
[2018-01-13] MEDS: PIPERACILLIN/TAZOBACTAM/D5W 50 ML IV SCH ×4 (06:00→23:23)
--- NOTE | 2018-01-13 06:09 | NUR ---
Patient remains AAOX3. In no acute distress. Refused to have IV ABX. Tried x4, but continue to refused and was getting anxious, yelling to this nurse and stating "No". Found hospital gown and ID tag on the floor. Continue to be anxious unless left alone. Will continue to monitor. Safety measure maintained and call alonzo within reach.
[2018-01-13] MEDS ORDERED: HYDROCORTISONE 1% CREAM 30 GM TUBE TP PRN (07:45)
[2018-01-13] MEDS: THIAMINE HCL 100 MG TABLET PO SCH (08:18)
[2018-01-13] MEDS: PHENYTOIN SODIUM EXTENDED 100 MG CAPSULE.SA PO SCH ×2 (08:18→17:01)
[2018-01-13] MEDS: MULTIVITAMINS,THERAPEUTIC TABLET PO SCH (08:18)
[2018-01-13] MEDS: FOLIC ACID 1 MG TABLET PO SCH (08:18)
[2018-01-13] MEDS: LACOSAMIDE 50 MG TABLET PO SCH ×2 (09:00→20:37)
[2018-01-13] MEDS ORDERED: SULFAMETH/TRIMETH 800/160 MG TABLET PO SCH (09:00)
[2018-01-13] MEDS: LEVETIRACETAM 500 MG TABLET PO SCH ×2 (11:13→20:37)
[2018-01-13 11:43] VITALS: BP 96/61
[2018-01-13] MEDS: PHENAZOPYRIDINE HCL 100 MG TABLET PO SCH ×2 (13:56→21:59)
[2018-01-13 15:48] VITALS: BP 97/60
--- NOTE | 2018-01-13 19:45 | NUR ---
RECEIVED PATIENT AWAKE IN BED. A/O X3. DENIES PAIN OR DISCOMFORT. NO RESP. DISTRESS NOTED. H/L INTACT AND PATENT NOTED TO LE
--- NOTE | 2018-01-13 19:46 | NUR ---
*NOTED TO RIGHT FA #22 GAUGE. CALL LIGHT IN REACH. ALL NEEDS ATTENDED. WILL CONTINUE TO MONITOR.
[2018-01-13 20:00] VITALS: BP 94/55
[2018-01-13] MEDS: QUETIAPINE FUMARATE 25 MG TABLET PO SCH (20:37)
[2018-01-13] MEDS: ZOLPIDEM 5 MG TABLET PO PRN (23:28)
[2018-01-14 05:04] VITALS: BP 95/61
[2018-01-14] MEDS: PIPERACILLIN/TAZOBACTAM/D5W 50 ML IV SCH ×3 (05:30→17:19)
[2018-01-14] MEDS: PHENAZOPYRIDINE HCL 100 MG TABLET PO SCH ×3 (05:31→22:06)
--- NOTE | 2018-01-14 06:33 | NUR ---
PATIENT AWAKE. SLEPT WELL. DENIES PAIN OR DISCOMFORT. VS WNL. CALL LIGHT IN REACH. ALL NEEDS ATTENDED.
[2018-01-14] MEDS: LACOSAMIDE 50 MG TABLET PO SCH ×2 (08:06→20:27)
[2018-01-14] MEDS: THIAMINE HCL 100 MG TABLET PO SCH (08:06)
[2018-01-14] MEDS: PHENYTOIN SODIUM EXTENDED 100 MG CAPSULE.SA PO SCH ×2 (08:06→17:18)
[2018-01-14] MEDS: LEVETIRACETAM 500 MG TABLET PO SCH ×2 (08:06→20:27)
[2018-01-14] MEDS: MULTIVITAMINS,THERAPEUTIC TABLET PO SCH (08:06)
[2018-01-14] MEDS: FOLIC ACID 1 MG TABLET PO SCH (08:06)
[2018-01-14 15:42] VITALS: BP 105/76
[2018-01-14] MEDS: diphenhydrAMINE 25 MG CAP PO PRN (17:17)
--- NOTE | 2018-01-14 19:10 | NUR ---
RECEIVED PT AWAKE ON BED AAOX3, DENIES ANY SOB OR DISCOMFORT AT THIS TIME. IV SITE RFA, PATENT AND INTACT. SAFETY MEASURES INITIATED, PT BELONGINGS AND CALL RICHARDS WITHIN REACH.
[2018-01-14 19:21] VITALS: BP 86/57
[2018-01-14] MEDS: QUETIAPINE FUMARATE 25 MG TABLET PO SCH (20:27)
[2018-01-14 20:34] VITALS: BP 120/77
[2018-01-14] MEDS: MUPIROCIN 2% OINT 22 GM TUBE NS SCH (22:08)
[2018-01-14] MEDS: ZOLPIDEM 5 MG TABLET PO PRN (22:17)
[2018-01-15] MEDS: PIPERACILLIN/TAZOBACTAM/D5W 50 ML IV SCH ×5 (00:36→17:10)
[2018-01-15] MEDS: diphenhydrAMINE 25 MG CAP PO PRN (01:23)
[2018-01-15 03:23] VITALS: BP 103/64
[2018-01-15] MEDS: PHENAZOPYRIDINE HCL 100 MG TABLET PO SCH ×2 (06:00→13:05)
--- NOTE | 2018-01-15 06:42 | NUR ---
PT AWAKE, DENIES ANY SOB OR DISCOMFORT AT THIS TIME. PT REFUSED 0600 ORDERED MEDICATIONS AND IV ATB AND STATED HE WANTS THE DR TO BE PRESENT IF THE ATB WILL BE GIVEN. IV SITE ON RFA, PATENT AND INTACT. ON SUPRAPUBIC CATHETER, DRAINING WELL VIA GRAVITY. ALL NEEDS ANTICIPATED AND MET. SAFE ENVIRONMENT MAINTAINED AT ALL TIMES, CALL RICHARDS WITHIN REACH.
[2018-01-15] MEDS: PHENYTOIN SODIUM EXTENDED 100 MG CAPSULE.SA PO SCH ×2 (08:43→17:03)
[2018-01-15] MEDS: THIAMINE HCL 100 MG TABLET PO SCH (08:43)
[2018-01-15] MEDS: MULTIVITAMINS,THERAPEUTIC TABLET PO SCH (08:43)
[2018-01-15] MEDS: LACOSAMIDE 50 MG TABLET PO SCH ×2 (08:43→20:11)
[2018-01-15] MEDS: FOLIC ACID 1 MG TABLET PO SCH (08:43)
[2018-01-15] MEDS: LEVETIRACETAM 500 MG TABLET PO SCH ×2 (08:58→20:11)
[2018-01-15] MEDS: MUPIROCIN 2% OINT 22 GM TUBE NS SCH ×2 (09:00→21:07)
[2018-01-15 11:18] VITALS: BP 112/70
[2018-01-15] MEDS ORDERED: LACTULOSE 20 G/30 ML LIQUID UDC PO PRN (14:00)
--- NOTE | 2018-01-15 14:25 | NUR ---
Seen and evaluated by Dr. Cook
[2018-01-15 15:31] VITALS: BP 110/64
[2018-01-15] MEDS ORDERED: ZOLPIDEM 5 MG TABLET PO PRN (18:30)
--- NOTE | 2018-01-15 19:10 | NUR ---
RECEIVED PT ASLEEP ON BED, NO SIGNS OF ACUTE DISTRESS AT THIS TIME. IV SITE ON RFA, PATENT AND INTACT. ON SUPRAPUBIC CATHETER, DRAINING WELL VIA GRAVITY. SAFETY MEASURE INITIATED, CALL RICHARDS WITHIN REACH.
[2018-01-15 19:14] VITALS: BP 102/69
[2018-01-15] MEDS: QUETIAPINE FUMARATE 25 MG TABLET PO SCH (20:10)
[2018-01-16] MEDS: PIPERACILLIN/TAZOBACTAM/D5W 50 ML IV SCH ×3 (00:12→12:25)
[2018-01-16 03:18] VITALS: BP 90/56
[2018-01-16 06:26] LABS: BASOPHILS # (AUTO) 0.1 K/uL (0.0-8.0); BASOPHILS % (AUTO) 1.1 % (0.0-2.0); EOSINOPHILS # (AUTO) 0.2 K/uL (0.0-0.7); EOSINOPHILS % (AUTO) 4.4 % (0.0-7.0); HEMATOCRIT 35.7 % (36.7-47.1); HEMOGLOBIN 11.9 g/dL (12.5-16.3); LYMPHOCYTES # (AUTO) 1.2 K/uL (20.0-40.0); LYMPHOCYTES % (AUTO) 22.8 % (20.5-51.5); MEAN CORPUSCULAR HEMOGLOBIN 29.1 uug (23.8-33.4); MEAN CORPUSCULAR HGB CONC 33 g/dL (32.5-36.3); MEAN CORPUSCULAR VOLUME 87.5 fL (73.0-96.2); MONOCYTES # (AUTO) 0.5 K/uL (2.0-10.0); MONOCYTES % (AUTO) 10.1 % (0.0-11.0); NEUTROPHILS # (AUTO) 3.2 K/uL (1.8-8.9); NEUTROPHILS % (AUTO) 61.6 % (38.5-71.5); PLATELET COUNT (AUTO) 240 K/uL (152-348); RED BLOOD CELL COUNT(AUTO) 4.08 MIL/uL (4.06-5.63); WHITE BLOOD COUNT (AUTO) 5.1 K/uL (3.6-10.2)
[2018-01-16 06:34] LABS: BILIRUBIN,TOTAL 0.2 mg/dL (0.2-1.0); CREATININE 1.2 mg/dL (0.6-1.3); MAGNESIUM 1.5 mg/dL (1.8-2.4); PHOSPHOROUS 2.9 mg/dL (2.5-4.9); POTASSIUM 3.7 mmol/L (3.5-5.1); TOTAL PROTEIN, SERUM 6.9 g/dL (6.4-8.2)
--- NOTE | 2018-01-16 06:57 | NUR ---
PT RESTING COMFORTABLY ON BED, DENIES AND SOB OR CHEST PAIN AT THIS TIME. NO EPISODE OF SEIZURE THROUGHOUT THE SHIFT. SUPRAPUBIC CATHETER, DRAINING WELL VIA GRAVITY. ALL NEEDS ATTENDED AND MET. SAFE ENVIRONMENT MAINTAINED AT ALL TIMES, CALL RICHARDS WITHIN REACH.
[2018-01-16] MEDS: LACOSAMIDE 50 MG TABLET PO SCH (09:12)
[2018-01-16] MEDS: PHENYTOIN SODIUM EXTENDED 100 MG CAPSULE.SA PO SCH (09:12)
[2018-01-16] MEDS: THIAMINE HCL 100 MG TABLET PO SCH (09:12)
[2018-01-16] MEDS: FOLIC ACID 1 MG TABLET PO SCH (09:12)
[2018-01-16] MEDS: MULTIVITAMINS,THERAPEUTIC TABLET PO SCH (09:12)
[2018-01-16] MEDS: LEVETIRACETAM 500 MG TABLET PO SCH (09:13)
[2018-01-16] MEDS: MUPIROCIN 2% OINT 22 GM TUBE NS SCH (09:15)
[2018-01-16 11:30] VITALS: BP 105/65
[2018-01-16 12:37] VITALS: BP 98/74
--- NOTE | 2018-01-16 12:43 | NUR ---
patient reported Bowel Movement however not seen by staff.
[2018-01-16] MEDS ORDERED: MAGNESIUM OXIDE 400 MG TABLET PO ONE (14:45)
--- NOTE | 2018-01-16 15:15 | NUR ---
Pt was guided down to lobby via wheelchair. Pt in stable conditions, VS WNL, and no immediate s/sx of SOB, pain, distress or discomfort. Personnel from [facility] pick-up the patient in a white van. Pt had personal belonging with him and discharge paper in hand.
== END 2018-01-16 15:10 | DRG 466 ==
LOC: ER 22:27 → MED 01-13 00:49
PROVIDERS: ADMIT Internal Medicine Nephrology; ATTEND Internal Medicine
DX: T83.510A Infection and inflammatory reaction due to cystostomy catheter, initial encounter (principal); G92 Toxic encephalopathy; E44.0 Moderate protein-calorie malnutrition; F03.90 Unspecified dementia, unspecified severity, without behavioral disturbance, psychotic disturbance, mood disturbance, and anxiety; B96.5 Pseudomonas (aeruginosa) (mallei) (pseudomallei) as the cause of diseases classified elsewhere; N39.0 Urinary tract infection, site not specified; B95.2 Enterococcus as the cause of diseases classified elsewhere; Y73.8 Miscellaneous gastroenterology and urology devices associated with adverse incidents, not elsewhere classified; Y92.099 Unspecified place in other non-institutional residence as the place of occurrence of the external cause; G40.909 Epilepsy, unspecified, not intractable, without status epilepticus; Z87.820 Personal history of traumatic brain injury; Z79.899 Other long term (current) drug therapy; Z22.322 Carrier or suspected carrier of Methicillin resistant Staphylococcus aureus; N20.0 Calculus of kidney; S22.089D Unspecified fracture of T11-T12 vertebra, subsequent encounter for fracture with routine healing; X58.XXXD Exposure to other specified factors, subsequent encounter; N18.9 Chronic kidney disease, unspecified; Z68.1 Body mass index [BMI] 19.9 or less, adult
CPT/HCPCS: 36415; 51702; 74018; 76770; 83605; 83690; 83735; 84100; 85025; 87077; 87086; A4663; G0378; J0290; J2543; J3490; J7030; J7040; Q0163

== ENCOUNTER 2018-02-06 13:54 | Emergency (ER) | payer MEDICAID ==
[~2018-02-06] VITALS: Ht 170.2 cm; Wt 65.8 kg
[~2018-02-06 13:54] MED LIST changes: -FOLIC ACID 1000 MCG; -MERO500V IV; -PHENYTOIN EX CAP 100MG; +SULF1TAB48 PO; -VITAMIN B1 100 MG
--- NOTE | 2018-02-06 14:55 | NUR ---
PT IS IN ROOM #2B. DR SPENCER EVALUATED THE PT.
--- NOTE | 2018-02-06 15:01 | NUR ---
DR SPENCER CHANGED PT'S OBSTRUCTED SUPRAPUBIC F/C #18 WITH LEG BAG TO NEW SUPRAPUBIC F/C #18 WITH LEG BAG. PT TOLWRATED TO PROCEDURE WITHOUT COMPLICATIONS.
[2018-02-06 15:16] LABS: *BILIRUBIN,URIN NEGATIVE (NEGATIVE); *BLOOD, URINE 2+ (NEGATIVE); *CLARITY,URINE CLOUDY (CLEAR); *COLOR,URINE YELLOW (YELLOW); *KETONES,URINE NEGATIVE (NEGATIVE); *PROTEIN,URINE 1+ (NEGATIVE); *UROBILINOGEN,URINE 0.2 E.U./dl (NORMAL); LEUKOCYTE ESTERASE ,URINE 3+ (NEGATIVE); NITRITE, URINE POSITIVE (NEGATIVE); PH,URINE 7.5 (5.0-8.0); UGLUCOSE NEGATIVE (NEGATIVE)
[2018-02-06 15:21] LABS: BACTERIA,URINE MANY /HPF (NONE SEEN); RBC,URINE 20-50 /HPF (0-3); WBC,URINE 80-100 /HPF (0-3)
--- NOTE | 2018-02-06 16:49 | NUR ---
PT WAS D/C'D TO [facility] VIA S AMBULANCE. REPORT WAS GIVEN TO AMBULANCE EMT AND TO NURSING FACILITY RN.
[2018-02-06 16:53] VITALS: BP 132/77
== END 2018-02-06 16:54 | disposition home or self-care (01) ==
LOC: ER 13:56
DX: T83.091A Other mechanical complication of indwelling urethral catheter, initial encounter (principal); R33.9 Retention of urine, unspecified
CPT/HCPCS: 51702; 87077; 87086; A4663; J7030

== ENCOUNTER 2018-04-23 10:34 | Emergency (ER) | payer MEDICAID ==
[~2018-04-23] VITALS: Ht 172.7 cm; Wt 59.0 kg
[~2018-04-23 10:34] MED LIST changes: +DIPH25TA27 PO; +HYDR28.469 TP; -HYDR453. TP; +LACO50TA2 PO; +LEVE500T9 PO; +OLAN2.5T3 PO; -QUET25TA PO; -SULF1TAB48 PO
--- NOTE | 2018-04-23 10:53 | NUR ---
pt bib private ambulance co pain in the groin and penis area. pt very reluctant to give info. main concern for the pt seems to be pain medica tion.
[2018-04-23] MEDS ORDERED: KETOROLAC TROMETHAMINE 30 MG INJ ONE (10:57)
[2018-04-23] MEDS ORDERED: LORAZEPAM 1 MG TABLET ONE (10:57)
[2018-04-23] MEDS ORDERED: LORAZEPAM 2 MG/1 ML VIAL IM ONE (11:00)
[2018-04-23] MEDS ORDERED: LORAZEPAM 2 MG/1 ML VIAL ONE (11:00)
[2018-04-23] MEDS ORDERED: KETOROLAC TROMETHAMINE 30 MG INJ IM ONE (11:00)
[2018-04-23] MEDS ORDERED: ACET325T80 PO (11:01)
[2018-04-23 11:12] LABS: BASOPHILS # (AUTO) 0.1 K/uL (0.0-8.0); BASOPHILS % (AUTO) 0.7 % (0.0-2.0); EOSINOPHILS # (AUTO) 0.1 K/uL (0.0-0.7); EOSINOPHILS % (AUTO) 0.5 % (0.0-7.0); HEMATOCRIT 40.3 % (36.7-47.1); HEMOGLOBIN 13.2 g/dL (12.5-16.3); LYMPHOCYTES # (AUTO) 1.4 K/uL (20.0-40.0); LYMPHOCYTES % (AUTO) 12.5 % (20.5-51.5); MEAN CORPUSCULAR HEMOGLOBIN 28.3 uug (23.8-33.4); MEAN CORPUSCULAR HGB CONC 33 g/dL (32.5-36.3); MEAN CORPUSCULAR VOLUME 86.3 fL (73.0-96.2); MONOCYTES % (AUTO) 8.8 % (0.0-11.0); NEUTROPHILS # (AUTO) 8.7 K/uL (1.8-8.9); NEUTROPHILS % (AUTO) 77.5 % (38.5-71.5); PLATELET COUNT (AUTO) 346 K/uL (152-348); RED BLOOD CELL COUNT(AUTO) 4.67 MIL/uL (4.06-5.63); WHITE BLOOD COUNT (AUTO) 11.2 K/uL (3.6-10.2)
[2018-04-23 11:19] LABS: CREATININE 1.1 mg/dL (0.6-1.3); POTASSIUM 3.9 mmol/L (3.5-5.1)
--- NOTE | 2018-04-23 11:23 | NUR ---
pt ambulated to bathroom for bm with steady gait.
[2018-04-23 11:24] LABS: BILIRUBIN,DIRECT 0.1 mg/dL (0.0-0.2); BILIRUBIN,TOTAL 0.3 mg/dL (0.2-1.0); TOTAL PROTEIN, SERUM 8.5 g/dL (6.4-8.2)
[2018-04-23] MEDS ORDERED: HYDROMORPHONE 1 MG/1 ML DISP.SYRIN ONE (11:57)
[2018-04-23] MEDS ORDERED: HYDROMORPHONE 1 MG/1 ML DISP.SYRIN IM ONE (12:00)
--- NOTE | 2018-04-23 12:10 | NUR ---
remoced the existing suprapubic cath#18 and replaced with folley cath #18 without dificulty. pt tolerated well
--- NOTE | 2018-04-23 12:24 | NUR ---
called luis for transfer back to [facility], rout number [id number],eta 45 minutes
--- NOTE | 2018-04-23 13:30 | NUR ---
ambulanz at bedside to transfer the pt back to [facility]. pt says feels better and smiling, relief of the pain. d/lalita pt in satble condition. er md velasquez talked to dr. lee and the urologist regarding the pt.
[2018-04-23 13:32] VITALS: BP 110/71
== END 2018-04-23 13:30 | disposition home or self-care (01) ==
LOC: ER 10:34
DX: R33.9 Retention of urine, unspecified (principal); F17.290 Nicotine dependence, other tobacco product, uncomplicated; Z79.899 Other long term (current) drug therapy
CPT/HCPCS: 36415; 51705; 80048; 80076; 83690; 85025; 96372 ×2; 99284; 99406; C2627; J1170; J2060; A4663; J1885

== ENCOUNTER 2018-05-08 00:43 | Emergency (ER) | payer MEDICAID ==
[~2018-05-08] VITALS: Ht 165.1 cm; Wt 65.8 kg
[~2018-05-08 00:43] MED LIST changes: -ACET325T53 PO; +ACET325T80 PO; -DIPH25TA27 PO; -LACO50TA2 PO; -LEVE500T9 PO
--- NOTE | 2018-05-08 01:12 | NUR ---
Spoke to Shannan , patient to be transfered back to previous level of care via BLS transport. ETA for patient picking tech is [phone]. Confirmation # [id number]
--- NOTE | 2018-05-08 01:16 | NUR ---
Report given to [facility].
--- NOTE | 2018-05-08 01:27 | NUR ---
Urine sample taken, sent to lab.
[2018-05-08 01:36] LABS: *BILIRUBIN,URIN NEGATIVE (NEGATIVE); *BLOOD, URINE Trace-intact (NEGATIVE); *COLOR,URINE YELLOW (YELLOW); *KETONES,URINE NEGATIVE (NEGATIVE); *UROBILINOGEN,URINE 0.2 E.U./dl (NORMAL); LEUKOCYTE ESTERASE ,URINE 3+ (NEGATIVE); NITRITE, URINE POSITIVE (NEGATIVE); UGLUCOSE NEGATIVE (NEGATIVE)
[2018-05-08 01:39] LABS: *CLARITY,URINE HAZY (CLEAR)
[2018-05-08 01:43] LABS: BACTERIA,URINE MANY /HPF (NONE SEEN); SQUAMOUS EPITHELIAL CELL,UR FEW /HPF (NONE SEEN); WBC,URINE 20-50 /HPF (0-3)
--- NOTE | 2018-05-08 01:51 | NUR ---
Patient discharged to home in stable conditon. Written and verbal after care instructions given. Patient verbalizes understanding of instructions. Patient provided with taxi voucher to [facility]. Patient in waiting room awaiting taxi. Patient ambulated with steady gait, no acute signs of distress, VSS, all belongings taken.
[2018-05-08 01:53] VITALS: BP 102/69
--- NOTE | 2018-05-12 16:08 | NUR ---
pt Urine Cx came back positive for Providencia Rettgeri, results were discussed with , Culture results were faxed to [facility] [phone].
== END 2018-05-08 02:03 | disposition home or self-care (01) ==
LOC: ER 00:43
DX: T83.091A Other mechanical complication of indwelling urethral catheter, initial encounter (principal); F17.200 Nicotine dependence, unspecified, uncomplicated; Z79.899 Other long term (current) drug therapy
CPT/HCPCS: 51702; 87077; 87086; A4663

== ENCOUNTER 2018-05-20 17:25 | Emergency (ER) | payer MEDICAID ==
[~2018-05-20] VITALS: Ht 165.1 cm; Wt 65.8 kg
--- NOTE | 2018-05-20 17:40 | NUR ---
PT A/OX4, BIB PRIVATE AMBULANCE ([facility]) [address], C/O PAIN AROUND HIS SUPRAPUBIC CATHETER INSERTION SITE. UPON ASSESSMENT, SUPRAPUBIC CATH DRAINING ADEQUATELY, CATHETER INSERTION SITE DOES NOT APPEAR EDEMATOUS, NO DRAINAGE NOTED AROUND THE INSERTION SITE. PT DENIES C/P, SOB, N/V/D, DIZZINESS, HEADACHE.
[2018-05-20] MEDS ORDERED: QUET25TA PO (18:09)
--- NOTE | 2018-05-20 18:34 | NUR ---
CALLIE PALAFOX AT BEDSIDE FOR MSE.
[2018-05-20] MEDS ORDERED: SULFAMETH/TRIMETH 800/160 MG TABLET PO ONE (18:45)
--- NOTE | 2018-05-20 18:53 | NUR ---
SUPRAPUBIC CATHETER INSERTION SITE CLEANSED W/ NS, DRESSED W/ PRE-CUT 4X4 DRAINAGE GAUZE.
[2018-05-20] MEDS ORDERED: SULFAMETH/TRIMETH 800/160 MG TABLET ONE (18:54)
--- NOTE | 2018-05-20 18:57 | NUR ---
NAM PICK-UP ETA 2100. TRIP #[id number] SPOKE W/ CRYSTAL.
--- NOTE | 2018-05-20 19:15 | NUR ---
SHIFT REPORT GIVEN TO JENI HONEYCUTT.
--- NOTE | 2018-05-20 19:20 | NUR ---
Patient observed to be sitting up in bed, awake and alert. Safe environment implemented.
--- NOTE | 2018-05-20 21:18 | NUR ---
Report given to [facility] #[id number]. All belongings taken with patient.
--- NOTE | 2018-05-20 21:22 | NUR ---
Patient discharged to home in stable conditon. Written and verbal after care instructions given. Patient verbalizes understanding of instructions.
[2018-05-20 21:23] VITALS: BP 99/72
== END 2018-05-20 21:23 | disposition home or self-care (01) ==
LOC: ER 17:28
DX: R10.30 Lower abdominal pain, unspecified (principal); F17.200 Nicotine dependence, unspecified, uncomplicated; Z79.899 Other long term (current) drug therapy
CPT/HCPCS: A4663

== ENCOUNTER 2018-07-24 11:40 | Emergency (ER) | payer MEDICAID ==
[~2018-07-24] VITALS: Ht 165.1 cm; Wt 65.8 kg
[~2018-07-24 11:40] MED LIST changes: -OLAN2.5T3 PO; -PHEN-705 PO; +QUET25TA PO; -ZOLP5TAB2 PO
[2018-07-24] MEDS ORDERED: HYDROMORPHONE 1 MG/1 ML DISP.SYRIN IV ONE ×2 (12:15→13:45)
[2018-07-24] MEDS ORDERED: IV NORMAL SALINE 1000 ML BAG IV ONE (12:15)
[2018-07-24] MEDS ORDERED: ONDANSETRON 4 MG/2 ML VIAL IV ONE (12:15)
[2018-07-24] MEDS ORDERED: HYDROMORPHONE 1 MG/1 ML DISP.SYRIN ONE ×2 (12:23→13:36)
[2018-07-24] MEDS ORDERED: ONDANSETRON 4 MG/2 ML VIAL ONE ×2 (12:23→13:36)
--- NOTE | 2018-07-24 12:30 | NUR ---
Pt out of ER for Ct.
[2018-07-24 12:31] LABS: BASOPHILS % (AUTO) 0.4 % (0.0-2.0); EOSINOPHILS # (AUTO) 0.1 K/uL (0.0-0.7); EOSINOPHILS % (AUTO) 0.9 % (0.0-7.0); HEMATOCRIT 40.9 % (36.7-47.1); HEMOGLOBIN 13.4 g/dL (12.5-16.3); LYMPHOCYTES # (AUTO) 1.4 K/uL (20.0-40.0); LYMPHOCYTES % (AUTO) 13.2 % (20.5-51.5); MEAN CORPUSCULAR HEMOGLOBIN 27.5 uug (23.8-33.4); MEAN CORPUSCULAR HGB CONC 33 g/dL (32.5-36.3); MEAN CORPUSCULAR VOLUME 84.2 fL (73.0-96.2); MONOCYTES # (AUTO) 1.2 K/uL (2.0-10.0); MONOCYTES % (AUTO) 11.5 % (0.0-11.0); NEUTROPHILS # (AUTO) 7.6 K/uL (1.8-8.9); PLATELET COUNT (AUTO) 268 K/uL (152-348); RED BLOOD CELL COUNT(AUTO) 4.86 MIL/uL (4.06-5.63); WHITE BLOOD COUNT (AUTO) 10.3 K/uL (3.6-10.2)
[2018-07-24 12:38] LABS: CREATININE 1.1 mg/dL (0.6-1.3); POTASSIUM 3.9 mmol/L (3.5-5.1)
[2018-07-24 12:44] LABS: BILIRUBIN,DIRECT 0.2 mg/dL (0.0-0.2); BILIRUBIN,TOTAL 0.4 mg/dL (0.2-1.0); TOTAL PROTEIN, SERUM 8.3 g/dL (6.4-8.2)
--- NOTE | 2018-07-24 12:53 | NUR ---
Patient is resting comfortably in bed with eyes closed, NAD noted.
[2018-07-24 12:54] LABS: *BILIRUBIN,URIN NEGATIVE (NEGATIVE); *CLARITY,URINE CLOUDY (CLEAR); *COLOR,URINE YELLOW (YELLOW); *KETONES,URINE NEGATIVE (NEGATIVE); *UROBILINOGEN,URINE 0.2 E.U./dl (NORMAL); LEUKOCYTE ESTERASE ,URINE 3+ (NEGATIVE); NITRITE, URINE NEGATIVE (NEGATIVE); PH,URINE >=9.0 (5.0-8.0); UGLUCOSE NEGATIVE (NEGATIVE)
[2018-07-24 13:00] LABS: *BLOOD, URINE TRACE (NEGATIVE)
[2018-07-24 13:01] LABS: BACTERIA,URINE FEW /HPF (NONE SEEN); RBC,URINE NONE SEEN /HPF (0-3); SQUAMOUS EPITHELIAL CELL,UR FEW /HPF (NONE SEEN); WBC,URINE 0-3 /HPF (0-3)
[2018-07-24 13:03] LABS: TRIPLE PHOSPHATE CRYSTAL,UR MODERATE /HPF (NONE SEEN); URINE AMORPHOUS PHOSPHATES FEW /HPF
[2018-07-24] MEDS ORDERED: OLAN2.5T3 PO (13:14)
[2018-07-24] MEDS ORDERED: ZOLP5TAB8 PO (13:14)
[2018-07-24] MEDS ORDERED: ONDANSETRON IV *ER 4 MG/2 ML VIAL IV ONE (13:45)
--- NOTE | 2018-07-24 13:45 | NUR ---
Dr Owens changed pt suprapubic cath. Pt tolorated well.
--- NOTE | 2018-07-24 13:50 | NUR ---
Med respond called for BLS transfer. Trip #[id number], ETA 1530.
--- NOTE | 2018-07-24 15:05 | NUR ---
IV removed. Catheter intact and site benign. Pressure and 4x4 gauze applied to site. No bleeding noted.
--- NOTE | 2018-07-24 15:39 | NUR ---
Report provided to EMT trasporters, pt left Er in stable condition. After care paperwork given, all pt's belongings sent w/ pt.
== END 2018-07-24 15:42 | disposition home or self-care (01) ==
LOC: ER 11:40
DX: T83.091A Other mechanical complication of indwelling urethral catheter, initial encounter (principal); F17.200 Nicotine dependence, unspecified, uncomplicated; Z79.899 Other long term (current) drug therapy
CPT/HCPCS: 36415; 51702; 71045; 74176; 80048; 80076; 81001; 83690; 84484; 85025; 85730; 87077; 87086; 87186 ×2; 93005; 96374; 96375; 96376; 99284; J1170 ×2; J2405 ×2; 70030-TC; A4663; J7030

== ENCOUNTER 2018-08-21 19:25 | Emergency (ER) | payer MEDICAID ==
[~2018-08-21] VITALS: Ht 170.2 cm; Wt 60.3 kg
[~2018-08-21 19:25] MED LIST changes: +OLAN2.5T3 PO; +ZOLP5TAB8 PO
[2018-08-21] MEDS ORDERED: TRAZODONE TAB 50MG (19:44)
--- NOTE | 2018-08-21 20:00 | NUR ---
Patient presents with the chief complaint of "leaking suprapubic urinary catheter." Upon examination, it was determined that the bag was overfilled with urine and leaking from where the bag connects to the catheter. Collecting bag removed and replaced with a leg bag. Suprapubic site noted to have a dirty dressing, patient admits to not changing frequently due to pain from the plastic tape, paper tape with education provided. ERMD notified.
--- NOTE | 2018-08-21 20:16 | NUR ---
Call placed to [facility] Nephrology, Dr. Ling will be paged.
--- NOTE | 2018-08-21 20:31 | NUR ---
Call placed to [facility] for transportation back to [facility], Trip #[id number], ETA: 1385
--- NOTE | 2018-08-21 21:32 | NUR ---
Patient discharged to [facility] via ambulance in stable conditon. Written and verbal after care instructions given. Patient verbalizes understanding of instructions.
== END 2018-08-21 21:35 | disposition home or self-care (01) ==
LOC: ER 19:27
DX: T83.038A Leakage of other urinary catheter, initial encounter (principal); F17.200 Nicotine dependence, unspecified, uncomplicated; Z79.899 Other long term (current) drug therapy
CPT/HCPCS: A4663

== ENCOUNTER 2018-09-21 14:18 | Emergency (ER) | payer MEDICAID ==
[~2018-09-21] VITALS: Ht 170.2 cm; Wt 61.2 kg
[~2018-09-21 14:18] MED LIST changes: -DIPH25CA83 PO; -LACO200T2 PO; -QUET25TA PO; +TRAZODONE TAB 50MG
--- NOTE | 2018-09-21 14:32 | NUR ---
PT IS IN ROOM #2B. DR LANDAVERDE EVALUATED THE PT.
[2018-09-21 14:41] LABS: *BILIRUBIN,URIN NEGATIVE (NEGATIVE); *BLOOD, URINE NEGATIVE (NEGATIVE); *CLARITY,URINE CLOUDY (CLEAR); *COLOR,URINE YELLOW (YELLOW); *KETONES,URINE NEGATIVE (NEGATIVE); *UROBILINOGEN,URINE 0.2 E.U./dl (NORMAL); LEUKOCYTE ESTERASE ,URINE 3+ (NEGATIVE); NITRITE, URINE NEGATIVE (NEGATIVE); PH,URINE >=9.0 (5.0-8.0); UGLUCOSE NEGATIVE (NEGATIVE)
[2018-09-21 14:57] LABS: YEAST,URINE RARE /HPF (NONE SEEN)
[2018-09-21 14:58] LABS: TRIPLE PHOSPHATE CRYSTAL,UR MANY /HPF (NONE SEEN); URINE AMORPHOUS PHOSPHATES MANY /HPF
[2018-09-21] MEDS ORDERED: LEVOFLOXACIN 750 MG TABLET PO ONE (15:00)
[2018-09-21] MEDS ORDERED: LEVOFLOXACIN 750 MG TABLET ONE (15:11)
--- NOTE | 2018-09-21 15:16 | NUR ---
S AMBULANCE CALLED TO BRING PT BACK TO [facility]. NICKI IS 1 HOUR.
--- NOTE | 2018-09-21 16:06 | NUR ---
PT WAS TRANSFERED TO [facility] VIA S AMBULANCE. REPORT GIVEN TO AMBULANCE EMT. D/C INSTRUCTIONS GIVEN TO THE PT.
[2018-09-21 16:10] VITALS: BP 118/72
== END 2018-09-21 16:11 | disposition home or self-care (01) ==
LOC: ER 14:20
DX: T83.038A Leakage of other urinary catheter, initial encounter (principal); F17.200 Nicotine dependence, unspecified, uncomplicated; Z79.899 Other long term (current) drug therapy
CPT/HCPCS: 51702; 87086; A4663

== ENCOUNTER 2018-10-18 14:42 | Emergency (ER) | payer MEDICAID ==
[~2018-10-18] VITALS: Ht 167.6 cm; Wt 59.4 kg
--- NOTE | 2018-10-18 15:09 | NUR ---
Patient BIB private ambulance from [facility] c/o urinary problems. Patient is A/O x3, ambulatory, and in no acute distress at this time. Patient has a suprapubic urinary catheter in place, the dressing covering the stoma was saturated in urine, the tubing and leg collecting bag have obvious sediment throughout. Stoma site appears well with no s/s of infection. Saturated dressing and leg collecting bag removed, urine began to flow at a steady pace, specimen collected and taken to laboratory. LASHAE performed MSE.
[2018-10-18] MEDS ORDERED: FAMO20TA8 PO (15:11)
[2018-10-18] MEDS ORDERED: TRAZ-252 PO (15:11)
[2018-10-18] MEDS ORDERED: CETI10TA18 PO (15:11)
[2018-10-18] MEDS ORDERED: FURO20TA4 PO (15:11)
[2018-10-18] MEDS ORDERED: VITAMIN B-1 PO (15:11)
[2018-10-18 15:33] LABS: *BILIRUBIN,URIN NEGATIVE (NEGATIVE); *BLOOD, URINE 2+ (NEGATIVE); *CLARITY,URINE CLOUDY (CLEAR); *COLOR,URINE YELLOW (YELLOW); *KETONES,URINE NEGATIVE (NEGATIVE); *UROBILINOGEN,URINE 0.2 E.U./dl (NORMAL); LEUKOCYTE ESTERASE ,URINE 3+ (NEGATIVE); NITRITE, URINE POSITIVE (NEGATIVE); PH,URINE 7.5 (5.0-8.0); UGLUCOSE NEGATIVE (NEGATIVE)
[2018-10-18 15:34] LABS: BASOPHILS # (AUTO) 0.1 K/uL (0.0-8.0); EOSINOPHILS # (AUTO) 0.2 K/uL (0.0-0.7); EOSINOPHILS % (AUTO) 2.6 % (0.0-7.0); LYMPHOCYTES # (AUTO) 1.7 K/uL (20.0-40.0); LYMPHOCYTES % (AUTO) 22.2 % (20.5-51.5); MEAN CORPUSCULAR HEMOGLOBIN 28.2 uug (23.8-33.4); MEAN CORPUSCULAR HGB CONC 33 g/dL (32.5-36.3); MEAN CORPUSCULAR VOLUME 86.5 fL (73.0-96.2); MONOCYTES # (AUTO) 0.7 K/uL (2.0-10.0); MONOCYTES % (AUTO) 9.5 % (0.0-11.0); NEUTROPHILS % (AUTO) 64.7 % (38.5-71.5); PLATELET COUNT (AUTO) 287 K/uL (152-348); RED BLOOD CELL COUNT(AUTO) 4.62 MIL/uL (4.06-5.63); WHITE BLOOD COUNT (AUTO) 7.7 K/uL (3.6-10.2)
--- NOTE | 2018-10-18 15:35 | NUR ---
Case Managers assumes care. Hands off report received from ELIZ Delacruz. Patient is waiting for lab results & disposition. Patient is resting comfortably on gurney, denies any discomfort@this time.
[2018-10-18 15:41] LABS: CREATININE 1.1 mg/dL (0.6-1.3)
[2018-10-18 15:45] LABS: BACTERIA,URINE MANY /HPF (NONE SEEN); RBC,URINE 50-80 /HPF (0-3); WBC,URINE 80-100 /HPF (0-3)
[2018-10-18 15:46] LABS: TRIPLE PHOSPHATE CRYSTAL,UR FEW /HPF (NONE SEEN)
[2018-10-18] MEDS ORDERED: CEphaleXIN 500 MG CAPSULE PO ONE (16:00)
[2018-10-18] MEDS ORDERED: CEphaleXIN 500 MG CAPSULE ONE (16:00)
--- NOTE | 2018-10-18 16:16 | NUR ---
Patient is now for discharged to assisted living home. Written and verbal after care instructions given to patient and to [facility] staff . Patient and Laly verbalized understanding of instructions, pending S ambulance continuous pickling line pickler helper.
--- NOTE | 2018-10-18 17:45 | NUR ---
Patient is eating dinner with good appetite.
--- NOTE | 2018-10-18 17:55 | NUR ---
Patient discharged to assisted living home in stable conditon. Written and verbal after care instructions given to patient again & EMT Julio Cesar of [facility] unit#114. Patient & EMT Julio Cesar verbalized understanding of instructions.
== END 2018-10-18 17:58 | disposition home or self-care (01) ==
LOC: ER 14:44
DX: N39.0 Urinary tract infection, site not specified (principal); T83.098A Other mechanical complication of other urinary catheter, initial encounter; F17.200 Nicotine dependence, unspecified, uncomplicated; Z79.899 Other long term (current) drug therapy
CPT/HCPCS: 36415; 85025; 87077; 87086; A4217; A4663

== ENCOUNTER 2018-12-28 15:21 | Emergency (ER) | payer MEDICAID ==
[~2018-12-28] VITALS: Ht 177.8 cm; Wt 65.8 kg
[~2018-12-28 15:21] MED LIST changes: +CETI10TA18 PO; +FAMO20TA8 PO; +FURO20TA4 PO; +TRAZ-252 PO; -TRAZODONE TAB 50MG; +VITAMIN B-1 PO
[2018-12-28] MEDS ORDERED: CEFD300C3 PO (17:11)
[2018-12-28] MEDS ORDERED: CEFI200S PO (17:11)
--- NOTE | 2018-12-28 17:29 | NUR ---
Lag bag removed, catheter mildly flushed with NS, flowing at this time. Leg bag replaced.
--- NOTE | 2018-12-28 17:34 | NUR ---
[facility], trip #[id number].
--- NOTE | 2018-12-28 19:05 | NUR ---
received report from [employer] [employer].
--- NOTE | 2018-12-28 19:19 | NUR ---
ambulance here to shredder picker patient
--- NOTE | 2018-12-28 19:23 | NUR ---
patient discharged. pateint taken home with ambulanz. patient alert and oriented x4. patient able to ambulate with steady gait. patient has good understanding of health. exit care package and personalbelongings taken with the patient. all discharge instuctions given in provided folder. patient in stable condition. catheter intact and patent
[2018-12-28 19:28] VITALS: BP 117/75
== END 2018-12-28 19:29 | disposition home or self-care (01) ==
LOC: ER 15:21
DX: T83.098A Other mechanical complication of other urinary catheter, initial encounter (principal); F32.9 Major depressive disorder, single episode, unspecified; F03.90 Unspecified dementia, unspecified severity, without behavioral disturbance, psychotic disturbance, mood disturbance, and anxiety; F17.200 Nicotine dependence, unspecified, uncomplicated; Z79.899 Other long term (current) drug therapy
CPT/HCPCS: A4217; A4663

== ENCOUNTER 2019-01-16 10:48 | Emergency (ER) | payer MEDICAID ==
[~2019-01-16] VITALS: Ht 175.3 cm; Wt 65.8 kg
[~2019-01-16 10:48] MED LIST changes: +CEFD300C3 PO; +CEFI200S PO; -VITAMIN B-1 PO
--- NOTE | 2019-01-16 11:02 | NUR ---
PT IS IN THE ROOM #2A. DR WILKINSON EVALUATED THE PT.
--- NOTE | 2019-01-16 13:06 | NUR ---
PT WAS D/C TO [facility]IA B[facility] AMBULANCE. D/C INSTRUCTIONS GIVEN TO THE PT BY DR WILKINSON.
[2019-01-16 13:07] VITALS: BP 128/68
== END 2019-01-16 13:10 | disposition home or self-care (01) ==
LOC: ER 10:48
DX: T83.038A Leakage of other urinary catheter, initial encounter (principal); R33.9 Retention of urine, unspecified; F32.9 Major depressive disorder, single episode, unspecified; F03.90 Unspecified dementia, unspecified severity, without behavioral disturbance, psychotic disturbance, mood disturbance, and anxiety; F17.290 Nicotine dependence, other tobacco product, uncomplicated; Z79.899 Other long term (current) drug therapy
CPT/HCPCS: 51702; A4663

== ENCOUNTER 2019-02-03 22:49 | Inpatient (IN) | payer MEDICAID ==
[~2019-02-03] VITALS: Ht 170.2 cm; Wt 57.2 kg
[2019-02-03] MEDS ORDERED: HYDROCODONE/APAP 5-325MG TABLET PO ONE (23:00)
[2019-02-03] MEDS ORDERED: HYDROCODONE/APAP 5-325MG TABLET ONE (23:01)
[2019-02-03 23:26] LABS: BASOPHILS % (AUTO) 0.5 % (0.0-2.0); EOSINOPHILS # (AUTO) 0.2 K/uL (0.0-0.7); HEMATOCRIT 44.7 % (36.7-47.1); HEMOGLOBIN 14.5 g/dL (12.5-16.3); LYMPHOCYTES # (AUTO) 2.1 K/uL (20.0-40.0); LYMPHOCYTES % (AUTO) 22.7 % (20.5-51.5); MEAN CORPUSCULAR HEMOGLOBIN 29.3 uug (23.8-33.4); MEAN CORPUSCULAR HGB CONC 33 g/dL (32.5-36.3); MEAN CORPUSCULAR VOLUME 90.1 fL (73.0-96.2); MONOCYTES # (AUTO) 0.8 K/uL (2.0-10.0); MONOCYTES % (AUTO) 8.8 % (0.0-11.0); NEUTROPHILS # (AUTO) 6.1 K/uL (1.8-8.9); PLATELET COUNT (AUTO) 235 K/uL (152-348); RED BLOOD CELL COUNT(AUTO) 4.96 MIL/uL (4.06-5.63); WHITE BLOOD COUNT (AUTO) 9.3 K/uL (3.6-10.2)
[2019-02-03 23:31] LABS: *BILIRUBIN,URIN NEGATIVE (NEGATIVE); *BLOOD, URINE 2+ (NEGATIVE); *CLARITY,URINE CLOUDY (CLEAR); *COLOR,URINE YELLOW (YELLOW); *KETONES,URINE NEGATIVE (NEGATIVE); *UROBILINOGEN,URINE 0.2 E.U./dl (NORMAL); LEUKOCYTE ESTERASE ,URINE 3+ (NEGATIVE); NITRITE, URINE POSITIVE (NEGATIVE); UGLUCOSE NEGATIVE (NEGATIVE)
[2019-02-03 23:35] LABS: BACTERIA,URINE MANY /HPF (NONE SEEN); RBC,URINE 50-80 /HPF (0-3); SQUAMOUS EPITHELIAL CELL,UR FEW /HPF (NONE SEEN); WBC,URINE TNTC /HPF (0-3)
[2019-02-03 23:44] LABS: BILIRUBIN,DIRECT 0.1 mg/dL (0.0-0.2); BILIRUBIN,TOTAL 0.2 mg/dL (0.2-1.0); CREATININE 0.9 mg/dL (0.6-1.3); POTASSIUM 4.1 mmol/L (3.5-5.1); TOTAL PROTEIN, SERUM 8.6 g/dL (6.4-8.2)
--- NOTE | 2019-02-04 00:23 | NUR ---
Pt. admitted to Med/Surg, under care of Dr. Penelope Gomez. Diagnosis: Urinary Tract Infection. Belongs List completed. MRSA swab done.
[2019-02-04] MEDS ORDERED: OLAN2.5T3 PO (00:25)
[2019-02-04] MEDS ORDERED: FURO20TA4 PO (00:25)
[2019-02-04] MEDS ORDERED: CEFTRIAXONE /D5W 50ML IVPB **ER PYXIS IV ONE (00:40)
[2019-02-04] MEDS ORDERED: CEFTRIAXONE 1 G in IV DEXTROSE 5% 50 ML IV ONE (00:45)
--- NOTE | 2019-02-04 01:15 | NUR ---
ADMITTED PATIENT IN MED SURG FLOOR UNDER THE CARE OF Krystle DYE. PATIENT ALERT BUT FORGETFUL, NO SOB NO CHEST PAIN, BODY CHECK DONE, NO SKIN ISSUES, PATIENT HAS SUPRAPUBIC CATH, DRAINING WITH WHITISH COLOR URINE IN MODERATE AMOUNT, WITH SLIGHT ODOR NOTED, PATIENT STATED HE CAN AMBULATE WITH ASSIST, AND CONTINENT OF BOWEL. ORIENTED PATIENT WITH CALL LIGHTS AND TV REMOTE CONTROL. CONT TO MONITOR.
[2019-02-04 01:44] VITALS: BP 100/61
[2019-02-04] MEDS: TRAZODONE 100 MG TABLET PO SCH ×2 (02:30→20:59)
[2019-02-04] MEDS: OLANZAPINE 2.5 MG TABLET PO SCH ×3 (02:31→17:14)
[2019-02-04] MEDS: LEVETIRACETAM 500 MG TABLET PO SCH ×3 (02:31→17:13)
[2019-02-04] MEDS: PHENYTOIN SODIUM EXTENDED 100 MG CAPSULE.SA PO SCH ×3 (02:34→21:00)
[2019-02-04] MEDS: ACETAMINOPHEN 325 MG TABLET PO PRN (04:51)
[2019-02-04 05:43] VITALS: BP 97/61
[2019-02-04 06:59] LABS: BASOPHILS % (AUTO) 0.4 % (0.0-2.0); EOSINOPHILS # (AUTO) 0.1 K/uL (0.0-0.7); EOSINOPHILS % (AUTO) 2.1 % (0.0-7.0); HEMATOCRIT 40.9 % (36.7-47.1); HEMOGLOBIN 13.3 g/dL (12.5-16.3); LYMPHOCYTES # (AUTO) 1.4 K/uL (20.0-40.0); LYMPHOCYTES % (AUTO) 20.8 % (20.5-51.5); MEAN CORPUSCULAR HEMOGLOBIN 29.3 uug (23.8-33.4); MEAN CORPUSCULAR HGB CONC 33 g/dL (32.5-36.3); MEAN CORPUSCULAR VOLUME 89.9 fL (73.0-96.2); MONOCYTES # (AUTO) 0.9 K/uL (2.0-10.0); MONOCYTES % (AUTO) 12.3 % (0.0-11.0); NEUTROPHILS # (AUTO) 4.4 K/uL (1.8-8.9); NEUTROPHILS % (AUTO) 64.4 % (38.5-71.5); PLATELET COUNT (AUTO) 211 K/uL (152-348); RED BLOOD CELL COUNT(AUTO) 4.55 MIL/uL (4.06-5.63); WHITE BLOOD COUNT (AUTO) 6.9 K/uL (3.6-10.2)
[2019-02-04 07:05] LABS: CREATININE 0.8 mg/dL (0.6-1.3); POTASSIUM 4.1 mmol/L (3.5-5.1)
--- NOTE | 2019-02-04 07:15 | NUR ---
PATIENT ALERT BUT FORGETFUL, NO SOB NO CHEST PAIN. PATIENT COMPLAIN OF ABDOMINAL PAIN, GIVEN TYLENOL 650MG PO WITH SOME HELP. PATIENT SUPRAPUBIC CATH PATENT DRAINING WITH WHITISH COLOR URINE WITH SLIGHT ODOR. CALL LIGHT WITHIN REACH. ENDORSED TO AM TO OBTAIN STRONGER PAIN MEDS. CONT TO MONITOR.
[2019-02-04] MEDS ORDERED: ACETAMINOPHEN 325 MG TABLET PO PRN (07:30)
[2019-02-04] MEDS ORDERED: HOME MED MISCELLANEOUS XX SCH (07:30)
--- NOTE | 2019-02-04 07:46 | NUR ---
RECEIVED PT RESTING COMFORTABLY IN BED. NO SIGNS OF ACUTE DISTRESS OR SOB NOTED AT THIS TIME. PT DENIES PAIN AT THIS TIME. BED LOCKED AND IN LOW POSITION. PT ALERT AND ORIENTED X 3. SAFETY MEASURES IMPLEMENTED AND OBSERVED. WILL CONTINUE TO MONITOR.
[2019-02-04] MEDS ORDERED: OLANZAPINE 2.5 MG TABLET PO SCH (09:00)
[2019-02-04] MEDS ORDERED: LEVETIRACETAM 500 MG TABLET PO SCH (09:00)
[2019-02-04] MEDS ORDERED: MULTIVITAMINS,THERAPEUTIC TABLET PO SCH (09:00)
[2019-02-04] MEDS: FUROSEMIDE 20 MG TABLET PO SCH (09:06)
[2019-02-04] MEDS: MULTIVITAMINS,THERAPEUTIC TABLET PO SCH (09:06)
[2019-02-04] MEDS: FOLIC ACID 1 MG TABLET PO SCH (09:07)
[2019-02-04] MEDS: THIAMINE HCL 100 MG TABLET PO SCH (09:07)
[2019-02-04 11:06] VITALS: BP 95/61
--- NOTE | 2019-02-04 12:45 | NUR ---
PT RESTING COMFORTABLY IN BED. NO ACUTE DISTRESS OR SOB NOTED. DR VIVIEN CONKLIN CALLED AND ORDERED FOR THE SUPRAPUBIC CATHETER TO BE CHANGED THIS COULD BE THE CAUSE FOR THE INFECTION. WILL ENTER ORDER. PT IS DIET AND MEDICATION COMPLIANT. BED LOCKED AND IN LOW POSITION. WILL CONTINUE TO MONITOR.
--- NOTE | 2019-02-04 13:50 | NUR ---
CONTACTED DR VIVIEN CONKLIN IN ORDER TO INFORM HIM [facility] STAFF CANNOT CHANGE SUPRAPUBIC CATHETER. DR ASKED FOR IRIS MILLER NP BE CONTACTED IN ORDER TO CHANGE CATHETER.
--- NOTE | 2019-02-04 14:30 | NUR ---
IRIS MILLER CONTACTED REGARDING SUPRA PUBIC CATHETER CHANGE.
[2019-02-04 15:36] VITALS: BP 90/57
--- NOTE | 2019-02-04 16:10 | NUR ---
IRIS MILLER WILL CHANGE SUPRAPUBIC CATHETER ON 02/05/[address] VIVIEN CONKLIN INFORMED VIA [facility] OFFICE. DR CONKLIN ALSO INFORMED OF PT'S BLOOD PRESSURE IN THE LOW 90'S AND THAT PT IS NOT RECEIVING ANY FLUIDS. AWAITING DR FRANCOIS BACK.
[2019-02-04 16:14] VITALS: BP 94/65
[2019-02-04] MEDS ORDERED: PHENYTOIN SODIUM EXTENDED 100 MG CAPSULE.SA PO SCH (18:00)
--- NOTE | 2019-02-04 18:22 | NUR ---
PT RESTING COMFORTABLY IN BED. NO ACUTE DISTRESS NOTED. NO SOB NOTED. PT ALERT AND ORIENTED X3. PT AWAKE , COOPERATIVE AND PLEASANT. PT IS DIET AND MEDICATION COMPLIANT. BRYANT CATHETER EMPTIED. BED LOCKED AND IN LOW POSITION. WILL GIVE REPORT TO INCOMING SHIFT NURSE.
[2019-02-04 20:00] VITALS: BP 94/56
--- NOTE | 2019-02-04 20:00 | NUR ---
Patient received into care, sitting up in bed, watching television. Patient is alert/oriented x3 and has no complaints of pain or discomfort at this time. Patient has a left wrist 22g saline lock that is patent and intact. All safety and fall prevention measures are in place. Call light and personal items are within reach at all times. Will continue to monitor.
[2019-02-04] MEDS ORDERED: TRAZODONE 50 MG TABLET PO SCH (21:00)
[2019-02-04] MEDS ORDERED: CEFTRIAXONE 1 G VIAL IM SCH (23:55)
[2019-02-05] MEDS: ACETAMINOPHEN 325 MG TABLET PO PRN (00:10)
[2019-02-05] MEDS: CEFTRIAXONE 1 G in IV DEXTROSE 5% 50 ML IV SCH (00:10)
[2019-02-05] MEDS ORDERED: CEFTRIAXONE 500 MG in IV DEXTROSE 5% 50 ML IV SCH (02:00)
[2019-02-05 05:39] VITALS: BP 94/62
--- NOTE | 2019-02-05 06:21 | NUR ---
Patient slept intermittently throughout night for approximately 5 hours with complaint of pain/discomfort addressed with prescribed Tylenol. Prescribed IV antibiotics were provided as ordered and tolerated well, with no adverse side effects noted or observed. IV cath 22g on left wrist remains patent and intact. VS are WNL and patient is stable. All nursing needs were met promptly. All safety measures and fall precaution measures remain in place. Call light and personal items remain within reach at all times.
[2019-02-05] MEDS: MULTIVITAMINS,THERAPEUTIC TABLET PO SCH (08:58)
[2019-02-05] MEDS: OLANZAPINE 2.5 MG TABLET PO SCH ×2 (08:58→17:22)
[2019-02-05] MEDS: LEVETIRACETAM 500 MG TABLET PO SCH ×2 (08:58→17:22)
[2019-02-05] MEDS: FOLIC ACID 1 MG TABLET PO SCH (08:59)
[2019-02-05] MEDS: PHENYTOIN SODIUM EXTENDED 100 MG CAPSULE.SA PO SCH ×2 (08:59→20:48)
[2019-02-05] MEDS: FUROSEMIDE 20 MG TABLET PO SCH (08:59)
[2019-02-05] MEDS: THIAMINE HCL 100 MG TABLET PO SCH (08:59)
[2019-02-05 11:18] VITALS: BP 94/67
--- NOTE | 2019-02-05 12:15 | NUR ---
DR MILLER UNABLE TO DO SUPRAPUBIC CATHETER CHANGE PROCEDURE AVAILABLE CATHETERS ARE NO SIZE 16. [facility] AND [facility] DO NOT HAVE THE NEEDED SIZE. WILL INFORM DR CONKLIN. PT RESTING IN BED COMFORTABLY NO SIGNS OF SOB OR ACUTE DISTRESS NOTED.
--- NOTE | 2019-02-05 13:55 | NUR ---
DR CONKLIN AWARE OF PT'S SUPRAPUBIC CATHETER NOT BEING CHANGED DUE TO LACK OF STOCK. [facility] STATES THEY WILL SPECIAL ORDER THE 16 OMANI SUPRAPUBIC CATHETER NEEDED. [facility] STATES CATHETER WILL BE AVAILABLE AT THE [facility] ON SATURDAY OR SATURDAY. DR CONKLIN AWARE.
[2019-02-05 15:01] VITALS: BP 92/65
[2019-02-05 20:00] VITALS: BP 98/64
[2019-02-05] MEDS: TRAZODONE 100 MG TABLET PO SCH (20:48)
[2019-02-06] MEDS: CEFTRIAXONE 1 G in IV DEXTROSE 5% 50 ML IV SCH (00:34)
[2019-02-06 05:38] VITALS: BP 103/72
--- NOTE | 2019-02-06 07:00 | NUR ---
PATIENT AWAKE IN ROOM. SLEPT AT INTERVALS. PATIENT IS VERY EAGER TO GO BACK TO [facility]. DENIES PAIN OR DISCOMFORT. SUPRA-PUBIC INTACT AND DRAINING WELL. CALL LIGHT IN REACH. ALL NEEDS ATTENDED. WILL CONTINUE TO MONITOR AND ASSESS.
--- NOTE | 2019-02-06 07:55 | NUR ---
Patient resting comfortably in bed at this time. No signs of distress. Stable at this time. No complaints of pain. Suprapubic catheter in place, no signs of leakage. Call light within reach of patient. Safety measures implemented. Will continue to monitor throughout shift.
[2019-02-06] MEDS: PHENYTOIN SODIUM EXTENDED 100 MG CAPSULE.SA PO SCH ×2 (08:12→21:14)
[2019-02-06] MEDS: OLANZAPINE 2.5 MG TABLET PO SCH ×2 (08:13→16:05)
[2019-02-06] MEDS: MULTIVITAMINS,THERAPEUTIC TABLET PO SCH (08:13)
[2019-02-06] MEDS: FUROSEMIDE 20 MG TABLET PO SCH (08:13)
[2019-02-06] MEDS: LEVETIRACETAM 500 MG TABLET PO SCH ×2 (08:13→16:05)
[2019-02-06] MEDS: THIAMINE HCL 100 MG TABLET PO SCH (08:15)
[2019-02-06] MEDS: FOLIC ACID 1 MG TABLET PO SCH (08:15)
[2019-02-06 11:02] VITALS: BP 100/67
[2019-02-06 15:32] VITALS: BP 84/63
[2019-02-06 16:03] VITALS: BP 101/75
--- NOTE | 2019-02-06 17:56 | NUR ---
Patient resting comfortably in bed at this time. Denies any pain experienced. Rios catheter is patent, flowing, no signs of leakage. Awaiting Urologist to come and change patient's suprapubic catheter. Stable condition throughout shift. No signs of distress. Safety measures implemented, will continue to monitor until end of shift.
[2019-02-06 19:39] VITALS: BP 91/59
[2019-02-06 19:51] VITALS: BP 105/72
--- NOTE | 2019-02-06 20:00 | NUR ---
RECEIVED PATIENT AWAKE IN BED. A/O X3-4. VERY FORGETFUL AND NEEDS FREQUENT REDIRECTION. VS WNL. PATIENT DENIES PAIN OR DISCOMFORT. NO RESP. DISTRESS NOTED. SUPRA-PUBIC CATHETER INTACT AND PATENT, CLEAR YELLOW URINE NOTED. BED ALARM ON. CALL LIGHT IN REACH. ALL NEEDS ATTENDED. WILL CONTINUE TO MONITOR AND ASSESS.
[2019-02-06] MEDS: TRAZODONE 100 MG TABLET PO SCH (21:14)
[2019-02-07] MEDS: CEFTRIAXONE 1 G in IV DEXTROSE 5% 50 ML IV SCH (00:47)
[2019-02-07 04:42] VITALS: BP 103/64
[2019-02-07] MEDS: PHENYTOIN SODIUM EXTENDED 100 MG CAPSULE.SA PO SCH ×2 (09:27→20:27)
[2019-02-07] MEDS: FOLIC ACID 1 MG TABLET PO SCH (09:27)
[2019-02-07] MEDS: MULTIVITAMINS,THERAPEUTIC TABLET PO SCH (09:27)
[2019-02-07] MEDS: LEVETIRACETAM 500 MG TABLET PO SCH ×2 (09:28→17:20)
[2019-02-07] MEDS: FUROSEMIDE 20 MG TABLET PO SCH (09:28)
[2019-02-07] MEDS: OLANZAPINE 2.5 MG TABLET PO SCH ×2 (09:28→17:20)
[2019-02-07] MEDS: THIAMINE HCL 100 MG TABLET PO SCH (09:28)
[2019-02-07 11:01] VITALS: BP 97/65
[2019-02-07 15:11] VITALS: BP 104/72
--- NOTE | 2019-02-07 17:54 | NUR ---
Patient resting in bed ; calm and comfortable with no signs of distress; patient will continue to be monitored.
--- NOTE | 2019-02-07 18:49 | NUR ---
Patient calm and comfortable through out shift medication compliant ;Urologist changed patients suprapubic cather; patient had output through out; patient no complaints of placement. Patient walking through out unit in stable condition and stable vital signs. Report given to oncoming nurse.
[2019-02-07 20:03] VITALS: BP 94/60
[2019-02-07] MEDS: TRAZODONE 100 MG TABLET PO SCH (20:27)
[2019-02-07] MEDS ORDERED: LEVOFLOXACIN 500 MG TABLET PO SCH (21:00)
[2019-02-07] MEDS: ACETAMINOPHEN 325 MG TABLET PO PRN (21:18)
[2019-02-08 04:49] VITALS: BP 113/72
[2019-02-08 06:22] LABS: BASOPHILS % (AUTO) 0.7 % (0.0-2.0); EOSINOPHILS # (AUTO) 0.2 K/uL (0.0-0.7); EOSINOPHILS % (AUTO) 3.3 % (0.0-7.0); HEMOGLOBIN 12.9 g/dL (12.5-16.3); LYMPHOCYTES # (AUTO) 1.1 K/uL (20.0-40.0); LYMPHOCYTES % (AUTO) 22.2 % (20.5-51.5); MEAN CORPUSCULAR HEMOGLOBIN 29.1 uug (23.8-33.4); MEAN CORPUSCULAR HGB CONC 32 g/dL (32.5-36.3); MEAN CORPUSCULAR VOLUME 90.1 fL (73.0-96.2); MONOCYTES # (AUTO) 0.7 K/uL (2.0-10.0); MONOCYTES % (AUTO) 13.5 % (0.0-11.0); NEUTROPHILS # (AUTO) 3.1 K/uL (1.8-8.9); NEUTROPHILS % (AUTO) 60.3 % (38.5-71.5); PLATELET COUNT (AUTO) 217 K/uL (152-348); RED BLOOD CELL COUNT(AUTO) 4.43 MIL/uL (4.06-5.63); WHITE BLOOD COUNT (AUTO) 5.2 K/uL (3.6-10.2)
[2019-02-08 06:35] LABS: BILIRUBIN,TOTAL 0.3 mg/dL (0.2-1.0); CREATININE 0.8 mg/dL (0.6-1.3); MAGNESIUM 1.8 mg/dL (1.8-2.4); PHOSPHOROUS 2.5 mg/dL (2.5-4.9); POTASSIUM 4.2 mmol/L (3.5-5.1); TOTAL PROTEIN, SERUM 7.4 g/dL (6.4-8.2)
--- NOTE | 2019-02-08 07:30 | NUR ---
Patient calm and comfortable with no signs of distress; patient will continue to be monitored.
[2019-02-08] MEDS: PHENYTOIN SODIUM EXTENDED 100 MG CAPSULE.SA PO SCH (08:53)
[2019-02-08] MEDS: THIAMINE HCL 100 MG TABLET PO SCH (08:54)
[2019-02-08] MEDS: FUROSEMIDE 20 MG TABLET PO SCH (08:54)
[2019-02-08] MEDS: MULTIVITAMINS,THERAPEUTIC TABLET PO SCH (08:54)
[2019-02-08] MEDS: FOLIC ACID 1 MG TABLET PO SCH (08:54)
[2019-02-08] MEDS: OLANZAPINE 2.5 MG TABLET PO SCH (08:55)
[2019-02-08] MEDS: LEVETIRACETAM 500 MG TABLET PO SCH (08:55)
[2019-02-08 11:27] VITALS: BP 94/57
[2019-02-08] MEDS ORDERED: LEVO500T2 PO (11:28)
--- NOTE | 2019-02-08 15:05 | NUR ---
Patient discharge home with no signs of distress; patient educated on diagnosis and how refill prescription ; Patient left lyft provided by [facility] assisted living; patient with stable vital signs and ambulatory.
== END 2019-02-08 15:15 | DRG 466 ==
LOC: ER 22:50 → MEDSURG3 02-04
PROVIDERS: ADMIT Internal Medicine Nephrology; ATTEND Internal Medicine Nephrology
PROC: 0T2BX0Z Change Drainage Device in Bladder, External Approach (ICD-10-PCS; principal; 2019-02-07)
DX: T83.510A Infection and inflammatory reaction due to cystostomy catheter, initial encounter (principal); G92 Toxic encephalopathy; J43.9 Emphysema, unspecified; N31.9 Neuromuscular dysfunction of bladder, unspecified; N39.0 Urinary tract infection, site not specified; Z93.6 Other artificial openings of urinary tract status; Y73.8 Miscellaneous gastroenterology and urology devices associated with adverse incidents, not elsewhere classified; Y92.099 Unspecified place in other non-institutional residence as the place of occurrence of the external cause; G40.909 Epilepsy, unspecified, not intractable, without status epilepticus; R10.12 Left upper quadrant pain; Z87.440 Personal history of urinary (tract) infections; B96.5 Pseudomonas (aeruginosa) (mallei) (pseudomallei) as the cause of diseases classified elsewhere; N20.0 Calculus of kidney; N21.0 Calculus in bladder; J47.9 Bronchiectasis, uncomplicated; Z87.820 Personal history of traumatic brain injury; M48.54XD Collapsed vertebra, not elsewhere classified, thoracic region, subsequent encounter for fracture with routine healing; R91.8 Other nonspecific abnormal finding of lung field; F03.90 Unspecified dementia, unspecified severity, without behavioral disturbance, psychotic disturbance, mood disturbance, and anxiety; J98.11 Atelectasis; Y84.6 Urinary catheterization as the cause of abnormal reaction of the patient, or of later complication, without mention of misadventure at the time of the procedure; Z79.899 Other long term (current) drug therapy; N42.89 Other specified disorders of prostate; N26.1 Atrophy of kidney (terminal); N18.9 Chronic kidney disease, unspecified
CPT/HCPCS: 36415; 70030-TC; 71045; 71250; 83690; 83735; 84100; 85025; 87077; 87086; 93005; A4217; A4663; G0378; J0696; J7050; J7060

== ENCOUNTER 2019-03-04 18:33 | Emergency (ER) | payer MEDICAID ==
[~2019-03-04] VITALS: Ht 170.2 cm; Wt 65.8 kg
[~2019-03-04 18:33] MED LIST changes: -CEFD300C3 PO; -CEFI200S PO; -CETI10TA18 PO; -FAMO20TA8 PO; -HYDR28.469 TP; +LEVO500T2 PO; -ZOLP5TAB8 PO
[2019-03-04] MEDS ORDERED: MORPHINE SULFATE 4 MG/1 ML DISP.SYRIN IM ONE (18:45)
[2019-03-04] MEDS ORDERED: MORPHINE SULFATE 4 MG/1 ML DISP.SYRIN ONE (18:58)
[2019-03-04 19:25] LABS: *BILIRUBIN,URIN NEGATIVE (NEGATIVE); *BLOOD, URINE 3+ (NEGATIVE); *CLARITY,URINE TURBID (CLEAR); *COLOR,URINE YELLOW (YELLOW); *KETONES,URINE NEGATIVE (NEGATIVE); *UROBILINOGEN,URINE 0.2 E.U./dl (NORMAL); LEUKOCYTE ESTERASE ,URINE 3+ (NEGATIVE); NITRITE, URINE NEGATIVE (NEGATIVE); UGLUCOSE NEGATIVE (NEGATIVE)
[2019-03-04] MEDS ORDERED: CEFTRIAXONE 1 G VIAL IM ONE (19:30)
[2019-03-04] MEDS ORDERED: CEFTRIAXONE 1 G VIAL ONE (19:32)
[2019-03-04] MEDS ORDERED: LIDOCAINE HCL 1% 20 ML VIAL ONE (19:33)
[2019-03-04 19:36] LABS: WBC,URINE TNTC /HPF (0-3); YEAST,URINE MODERATE /HPF (NONE SEEN)
[2019-03-04 19:39] LABS: BACTERIA,URINE MANY /HPF (NONE SEEN)
--- NOTE | 2019-03-04 20:33 | NUR ---
SPOKE WITH [facility], TRIP # [id number] ETA [phone].
--- NOTE | 2019-03-04 20:36 | NUR ---
Spoke to Jane from [facility]. patient okay to go via taxi to the facility. coding clerks supervisor is aware, patient cleared by ER MD Serrano for d/c via Taxi transport
--- NOTE | 2019-03-04 20:58 | NUR ---
[facility] AND WILL BE SEND TO [facility] VIA AMBULANCE.
--- NOTE | 2019-03-04 23:48 | NUR ---
CALLED [facility], UNIT IS ON THE WAY WILL BE HERE 10-15 MINUTES.
--- NOTE | 2019-03-05 00:09 | NUR ---
[facility] HERE FOR SECTION GANG WORKER. PATIENT IN NO ACUTE DISTRESS.
--- NOTE | 2019-03-05 00:14 | NUR ---
Patient discharged to home in stable conditon. Written and verbal after care instructions given. Patient verbalizes understanding of instructions. PAPERWORK HANDED TO TRANSPORTER TO GIVE TO STAFF AT FACILITY.
[2019-03-05 00:15] VITALS: BP 117/87
== END 2019-03-05 00:15 | disposition home or self-care (01) ==
LOC: ER 18:35
DX: T83.091A Other mechanical complication of indwelling urethral catheter, initial encounter (principal); N39.0 Urinary tract infection, site not specified; R33.9 Retention of urine, unspecified; F32.9 Major depressive disorder, single episode, unspecified; F17.200 Nicotine dependence, unspecified, uncomplicated; Z79.899 Other long term (current) drug therapy; Z79.2 Long term (current) use of antibiotics
CPT/HCPCS: 81000; 81001; 87086; 96372 ×2; 99284; J0696; J2270; J3490; A4663

== ENCOUNTER 2019-04-23 22:18 | Emergency (ER) | payer MEDICAID ==
[~2019-04-23] VITALS: Ht 175.3 cm; Wt 65.8 kg
[~2019-04-23 22:18] MED LIST changes: -LEVO500T2 PO
[2019-04-23] MEDS ORDERED: HYDROCODONE/APAP 10-325 MG TABLET ONE (22:38)
[2019-04-23] MEDS ORDERED: HYDROCODONE/APAP 10-325 MG TABLET PO ONE (22:45)
--- NOTE | 2019-04-23 23:00 | NUR ---
Super pubic catheter change by Dr Owens with 16fringe dubose catheter.
[2019-04-23 23:34] LABS: *BILIRUBIN,URIN NEGATIVE (NEGATIVE); *BLOOD, URINE 3+ (NEGATIVE); *CLARITY,URINE CLOUDY (CLEAR); *COLOR,URINE YELLOW (YELLOW); *KETONES,URINE NEGATIVE (NEGATIVE); *UROBILINOGEN,URINE 0.2 E.U./dl (NORMAL); LEUKOCYTE ESTERASE ,URINE 3+ (NEGATIVE); NITRITE, URINE NEGATIVE (NEGATIVE); UGLUCOSE NEGATIVE (NEGATIVE)
[2019-04-23 23:35] LABS: RBC,URINE 50-80 /HPF (0-3)
[2019-04-23 23:36] LABS: BACTERIA,URINE MANY /HPF (NONE SEEN); SQUAMOUS EPITHELIAL CELL,UR FEW /HPF (NONE SEEN); WBC,URINE 80-100 /HPF (0-3)
[2019-04-23] MEDS ORDERED: CEphaleXIN 500 MG CAPSULE PO ONE (23:45)
--- NOTE | 2019-04-23 23:46 | NUR ---
[facility] ETA [facility] 45mins. Trip #[id number]
[2019-04-23] MEDS ORDERED: CEphaleXIN 500 MG CAPSULE ONE (23:49)
--- NOTE | 2019-04-23 23:50 | NUR ---
Rios drained 1000ml yelloe urine.
--- NOTE | 2019-04-24 01:07 | NUR ---
[facility] dispatch called. Transportation will be delayed 30mins.
--- NOTE | 2019-04-24 01:59 | NUR ---
Gave SBAR report to [facility] unit 228
[2019-04-24 02:01] VITALS: BP 128/77
== END 2019-04-24 02:02 | disposition home or self-care (01) ==
LOC: ER 22:21
DX: T83.038A Leakage of other urinary catheter, initial encounter (principal); N39.0 Urinary tract infection, site not specified; F32.9 Major depressive disorder, single episode, unspecified; F17.200 Nicotine dependence, unspecified, uncomplicated; Z79.899 Other long term (current) drug therapy
CPT/HCPCS: 51702; 87077; 87086; A4663

== ENCOUNTER 2019-05-21 10:24 | Emergency (ER) | payer MEDICAID ==
[~2019-05-21] VITALS: Ht 162.6 cm; Wt 56.7 kg
--- NOTE | 2019-05-21 10:33 | NUR ---
Dr Nieves seen and examined the pt.
--- NOTE | 2019-05-21 10:42 | NUR ---
LEFT VOICE MESSAGE FOR UROLOGY CONSULT: DR ELDER [phone]
--- NOTE | 2019-05-21 10:43 | NUR ---
DR ELDER ON THE PHONE WITH [facility]
[2019-05-21] MEDS ORDERED: MORPHINE SULFATE 4 MG/1 ML DISP.SYRIN ONE (10:49)
--- NOTE | 2019-05-21 10:53 | NUR ---
CALLIE PALAFOX AT BEDSIDE FOR PORTABLE US, EXAMINING THE PT.
[2019-05-21] MEDS ORDERED: MORPHINE SULFATE 4 MG/1 ML DISP.SYRIN IM ONE (11:00)
--- NOTE | 2019-05-21 11:21 | NUR ---
500 ML DRAINED VIA CATH, URINE SAMPLE SENT TO LAB.
--- NOTE | 2019-05-21 11:21 | NUR ---
CALLIE PALAFOX REPLACED THE FOLLEY WITH A NEW CATH GAUGE 16, WITH NO DIFFICULTY.
[2019-05-21 11:32] LABS: *BILIRUBIN,URIN NEGATIVE (NEGATIVE); *BLOOD, URINE 2+ (NEGATIVE); *CLARITY,URINE CLOUDY (CLEAR); *COLOR,URINE YELLOW (YELLOW); *KETONES,URINE NEGATIVE (NEGATIVE); *UROBILINOGEN,URINE 0.2 E.U./dl (NORMAL); LEUKOCYTE ESTERASE ,URINE 3+ (NEGATIVE); NITRITE, URINE NEGATIVE (NEGATIVE); UGLUCOSE NEGATIVE (NEGATIVE)
[2019-05-21 11:38] LABS: SQUAMOUS EPITHELIAL CELL,UR FEW /HPF (NONE SEEN); WBC,URINE 80-100 /HPF (0-3)
[2019-05-21 11:39] LABS: BACTERIA,URINE FEW /HPF (NONE SEEN)
[2019-05-21] MEDS ORDERED: CEFTRIAXONE 1 G VIAL ONE (11:48)
[2019-05-21] MEDS ORDERED: CEFTRIAXONE 1 G in IV DEXTROSE 5% 50 ML IV ONE (12:00)
[2019-05-21] MEDS ORDERED: IV NORMAL SALINE 500 ML BAG IV ONE (12:00)
--- NOTE | 2019-05-21 12:15 | NUR ---
CALLED [facility] TO TRNASFER THE PT BACK TO [facility]. ETA [id number]
[2019-05-21 13:17] LABS: BASOPHILS # (AUTO) 0.1 K/uL (0.0-8.0); BASOPHILS % (AUTO) 0.7 % (0.0-2.0); EOSINOPHILS # (AUTO) 0.2 K/uL (0.0-0.7); EOSINOPHILS % (AUTO) 1.8 % (0.0-7.0); HEMATOCRIT 41.5 % (36.7-47.1); HEMOGLOBIN 13.7 g/dL (12.5-16.3); LYMPHOCYTES # (AUTO) 1.7 K/uL (20.0-40.0); LYMPHOCYTES % (AUTO) 17.8 % (20.5-51.5); MEAN CORPUSCULAR HEMOGLOBIN 29.6 uug (23.8-33.4); MEAN CORPUSCULAR HGB CONC 33 g/dL (32.5-36.3); MEAN CORPUSCULAR VOLUME 89.7 fL (73.0-96.2); MONOCYTES # (AUTO) 0.7 K/uL (2.0-10.0); NEUTROPHILS % (AUTO) 72.7 % (38.5-71.5); PLATELET COUNT (AUTO) 328 K/uL (152-348); RED BLOOD CELL COUNT(AUTO) 4.62 MIL/uL (4.06-5.63); WHITE BLOOD COUNT (AUTO) 9.7 K/uL (3.6-10.2)
--- NOTE | 2019-05-21 16:30 | NUR ---
PERINEAL HYGIENE PROVIDED. Addendum: 05/21/19 at 1643 by SPOURMANSO NEW LEG BAG PLACED.
--- NOTE | 2019-05-21 16:41 | NUR ---
[facility] AT BEDSIDE TO T[facility]ER THE PT BACK TO [facility] .
[2019-05-21 16:43] VITALS: BP 109/62
== END 2019-05-21 16:44 | disposition home or self-care (01) ==
LOC: ER 10:24
DX: T83.098A Other mechanical complication of other urinary catheter, initial encounter (principal); F17.200 Nicotine dependence, unspecified, uncomplicated; R33.9 Retention of urine, unspecified; Z79.899 Other long term (current) drug therapy; Y84.8 Other medical procedures as the cause of abnormal reaction of the patient, or of later complication, without mention of misadventure at the time of the procedure; Y92.89 Other specified places as the place of occurrence of the external cause
CPT/HCPCS: 36415; 51702; 76857; 80048; 81000; 81001; 83605; 85025; 87077 ×2; 87086 ×2; 87186 ×2; 99284; J0696; J2270; A4663; J3490

== ENCOUNTER 2019-05-26 21:28 | Emergency (ER) | payer MEDICAID ==
[~2019-05-26] VITALS: Ht 170.2 cm; Wt 68.0 kg
[2019-05-26 22:16] LABS: BASOPHILS % (AUTO) 0.6 % (0.0-2.0); EOSINOPHILS # (AUTO) 0.2 K/uL (0.0-0.7); EOSINOPHILS % (AUTO) 3.7 % (0.0-7.0); HEMATOCRIT 41.3 % (36.7-47.1); HEMOGLOBIN 13.6 g/dL (12.5-16.3); LYMPHOCYTES # (AUTO) 2.1 K/uL (20.0-40.0); LYMPHOCYTES % (AUTO) 36.2 % (20.5-51.5); MEAN CORPUSCULAR HEMOGLOBIN 29.4 uug (23.8-33.4); MEAN CORPUSCULAR HGB CONC 33 g/dL (32.5-36.3); MEAN CORPUSCULAR VOLUME 89.1 fL (73.0-96.2); MONOCYTES # (AUTO) 0.6 K/uL (2.0-10.0); MONOCYTES % (AUTO) 10.6 % (0.0-11.0); NEUTROPHILS # (AUTO) 2.9 K/uL (1.8-8.9); NEUTROPHILS % (AUTO) 48.9 % (38.5-71.5); PLATELET COUNT (AUTO) 292 K/uL (152-348); RED BLOOD CELL COUNT(AUTO) 4.63 MIL/uL (4.06-5.63); WHITE BLOOD COUNT (AUTO) 5.9 K/uL (3.6-10.2)
[2019-05-26 22:23] LABS: CARBON DIOXIDE 27 mmol/L (21-32); CHLORIDE 102 mmol/L (98-107); CREATININE 0.8 mg/dL (0.6-1.3); GLUCOSE 74 mg/dL (74-106); POTASSIUM 3.9 mmol/L (3.5-5.1); UREA NITROGEN, BLOOD 20 mg/dL (7-18)
[2019-05-26 22:28] LABS: *BILIRUBIN,URIN NEGATIVE (NEGATIVE); *BLOOD, URINE 2+ (NEGATIVE); *CLARITY,URINE CLOUDY (CLEAR); *COLOR,URINE YELLOW (YELLOW); *KETONES,URINE NEGATIVE (NEGATIVE); *UROBILINOGEN,URINE 0.2 E.U./dl (NORMAL); LEUKOCYTE ESTERASE ,URINE 3+ (NEGATIVE); NITRITE, URINE NEGATIVE (NEGATIVE); PH,URINE 6.5 (5.0-8.0); UGLUCOSE NEGATIVE (NEGATIVE)
[2019-05-26 22:29] LABS: ALANINE AMINOTRANSFERASE 22 U/L (16-63); ALKALINE PHOSPHATASE 117 U/L (50-136); ASPARTATE AMINOTRANSFERASE 19 U/L (15-37); BILIRUBIN,TOTAL 0.2 mg/dL (0.2-1.0); LIPASE 322 U/L (73-393); TOTAL PROTEIN, SERUM 7.3 g/dL (6.4-8.2)
[2019-05-26 22:30] LABS: BILIRUBIN,DIRECT < 0.1 mg/dL (0.0-0.2)
[2019-05-26 22:35] LABS: BACTERIA,URINE MANY /HPF (NONE SEEN); RBC,URINE 50-80 /HPF (0-3); WBC,URINE 80-100 /HPF (0-3)
[2019-05-26 22:36] LABS: SQUAMOUS EPITHELIAL CELL,UR FEW /HPF (NONE SEEN)
[2019-05-26 22:37] LABS: YEAST,URINE PSEUDOHYPHAE /HPF (NONE SEEN)
[2019-05-26] MEDS ORDERED: CEFEPIME HCL 1 G VIAL ONE (22:54)
[2019-05-26] MEDS ORDERED: CEFEPIME HCL 2 G in IV DEXTROSE 5% 100 ML IV ONE (23:00)
--- NOTE | 2019-05-27 00:22 | NUR ---
SPOKE WITH MELECIO FROM [facility], SHE PROVIDED ME WITH A NUMBER FOR [facility] DUE TO PATIENT'S INSURANCE.
[2019-05-27] MEDS ORDERED: FLUCONAZOLE 100 MG TABLET PO ONE (00:30)
--- NOTE | 2019-05-27 00:38 | NUR ---
CALLED [facility]. TRIP NUMBER [id number]. ETA UP TO 3 HOURS.
[2019-05-27] MEDS ORDERED: FLUCONAZOLE 100 MG TABLET ONE (01:26)
--- NOTE | 2019-05-27 01:26 | NUR ---
Patient discharged to home in stable conditon. Written and verbal after care instructions given. Patient verbalizes understanding of instructions. patient left with stable gait, picked up "lyft" school bus driver. Called [facility] assisted living spoke with Magalys and she stated that a staff member will be waiting for him outisde the door.
[2019-05-27 01:28] VITALS: BP 116/78
== END 2019-05-27 01:29 | disposition home or self-care (01) ==
LOC: ER 21:29
DX: N39.0 Urinary tract infection, site not specified (principal); R10.9 Unspecified abdominal pain; F32.9 Major depressive disorder, single episode, unspecified; F17.200 Nicotine dependence, unspecified, uncomplicated; Z79.899 Other long term (current) drug therapy
CPT/HCPCS: 36415; 80048; 80076; 81000; 81001; 83690; 85025; 87077; 87086; 87186; 99283; J0692; A4663

== ENCOUNTER 2019-06-04 14:39 | Emergency (ER) | payer MEDICAID ==
[~2019-06-04] VITALS: Ht 170.2 cm; Wt 68.0 kg
[2019-06-04] MEDS ORDERED: MORPHINE SULFATE 4 MG/1 ML DISP.SYRIN ONE (14:58)
[2019-06-04] MEDS ORDERED: ONDANSETRON ODT 4 MG TAB.RAPDIS ONE (14:58)
[2019-06-04] MEDS ORDERED: MORPHINE SULFATE 4 MG/1 ML DISP.SYRIN IM ONE (15:00)
[2019-06-04] MEDS ORDERED: ONDANSETRON ODT 4 MG TAB.RAPDIS SL ONE (15:00)
--- NOTE | 2019-06-04 15:10 | NUR ---
REPLACED THE SUPRAPUBIC CATH, SAME GAUGE# 16 WITHOUT DIFFICULTY. LEG BAG RENEWED. FOLLEY DRAINED 500 ML. PT TOLERATED WELL. THE STOMA DRESSED.
--- NOTE | 2019-06-04 15:14 | NUR ---
called [facility] ambulance. eta 20 minutes
--- NOTE | 2019-06-04 15:38 | NUR ---
Patient discharged to home in stable conditon. Written and verbal after care instructions given. Patient verbalizes understanding of instructions.PT SENT HOME [facility]IA [facility]
[2019-06-04 15:41] VITALS: BP 119/79
== END 2019-06-04 15:41 | disposition home or self-care (01) ==
LOC: ER 14:39
DX: R33.9 Retention of urine, unspecified (principal); T83.091A Other mechanical complication of indwelling urethral catheter, initial encounter; F17.200 Nicotine dependence, unspecified, uncomplicated; Z79.899 Other long term (current) drug therapy
CPT/HCPCS: 51702; 96372; 99284; J2270; A4663; Q0162

== ENCOUNTER 2019-06-13 10:36 | Emergency (ER) | payer MEDICAID ==
[~2019-06-13] VITALS: Ht 167.6 cm; Wt 59.0 kg
[2019-06-13] MEDS ORDERED: ONDANSETRON 4 MG/2 ML VIAL IV ONE (11:00)
[2019-06-13] MEDS ORDERED: IV NORMAL SALINE 1000 ML BAG IV ONE (11:00)
[2019-06-13] MEDS ORDERED: HYDROMORPHONE 1 MG/1 ML DISP.SYRIN IV ONE (11:00)
[2019-06-13] MEDS ORDERED: HYDROMORPHONE 1 MG/1 ML DISP.SYRIN ONE (11:03)
[2019-06-13] MEDS ORDERED: ONDANSETRON 4 MG/2 ML VIAL ONE (11:03)
[2019-06-13 11:25] LABS: BASOPHILS # (AUTO) 0.1 K/uL (0.0-8.0); BASOPHILS % (AUTO) 0.8 % (0.0-2.0); EOSINOPHILS # (AUTO) 0.2 K/uL (0.0-0.7); EOSINOPHILS % (AUTO) 3.4 % (0.0-7.0); HEMATOCRIT 42.8 % (36.7-47.1); HEMOGLOBIN 13.9 g/dL (12.5-16.3); LYMPHOCYTES # (AUTO) 1.7 K/uL (20.0-40.0); LYMPHOCYTES % (AUTO) 26.9 % (20.5-51.5); MEAN CORPUSCULAR HEMOGLOBIN 29.4 uug (23.8-33.4); MEAN CORPUSCULAR HGB CONC 33 g/dL (32.5-36.3); MEAN CORPUSCULAR VOLUME 90.3 fL (73.0-96.2); MONOCYTES # (AUTO) 0.6 K/uL (2.0-10.0); MONOCYTES % (AUTO) 10.2 % (0.0-11.0); NEUTROPHILS # (AUTO) 3.7 K/uL (1.8-8.9); NEUTROPHILS % (AUTO) 58.7 % (38.5-71.5); PLATELET COUNT (AUTO) 228 K/uL (152-348); RED BLOOD CELL COUNT(AUTO) 4.74 MIL/uL (4.06-5.63); WHITE BLOOD COUNT (AUTO) 6.2 K/uL (3.6-10.2)
[2019-06-13 11:26] LABS: CREATININE 1.1 mg/dL (0.6-1.3); POTASSIUM 3.7 mmol/L (3.5-5.1)
[2019-06-13 11:32] LABS: BILIRUBIN,DIRECT 0.1 mg/dL (0.0-0.2); BILIRUBIN,TOTAL 0.3 mg/dL (0.2-1.0); TOTAL PROTEIN, SERUM 7.9 g/dL (6.4-8.2)
--- NOTE | 2019-06-13 11:48 | NUR ---
Patient is back from radiology department, [facility], pending exchange of supra-pubic catheter by MD & for urine specimen collection
--- NOTE | 2019-06-13 11:59 | NUR ---
Patient is resting comfortably on gurney while watching bedside TV. denies pains@the moment
[2019-06-13 12:56] LABS: *CLARITY,URINE CLOUDY (CLEAR); *COLOR,URINE RED (YELLOW)
[2019-06-13 12:57] LABS: *BILIRUBIN,URIN NEGATIVE (NEGATIVE); *BLOOD, URINE 3+ (NEGATIVE); *KETONES,URINE NEGATIVE (NEGATIVE); UGLUCOSE NEGATIVE (NEGATIVE)
[2019-06-13 12:58] LABS: *UROBILINOGEN,URINE 0.2 E.U./dl (NORMAL); LEUKOCYTE ESTERASE ,URINE 3+ (NEGATIVE); NITRITE, URINE NEGATIVE (NEGATIVE)
[2019-06-13 13:08] LABS: BACTERIA,URINE FEW /HPF (NONE SEEN); RBC,URINE TNTC /HPF (0-3); SQUAMOUS EPITHELIAL CELL,UR FEW /HPF (NONE SEEN)
[2019-06-13] MEDS ORDERED: CEFEPIME HCL 2 G in IV DEXTROSE 5% 100 ML IV ONE (13:30)
[2019-06-13] MEDS ORDERED: CEFEPIME HCL 1 G VIAL ONE (13:32)
--- NOTE | 2019-06-13 13:50 | NUR ---
[place] [id number] FOR AMBULANCE PICKUP. WILL CALL BACK FOR TIME.
--- NOTE | 2019-06-13 15:24 | NUR ---
IV removed. Catheter intact and site benign. Pressure and 4x4 gauze applied to site. No bleeding noted.
--- NOTE | 2019-06-13 15:50 | NUR ---
Patient discharged to assisted living home in stable condition. Written and verbal after care instructions given to patient and [facility] staff. Patient & the [facility] staff verbalized understanding & compliance of instructions. Message was [email or web address] lead front desk agent Karine & daniella Silva to call [facility] ER if they have any questions.
== END 2019-06-13 15:51 | disposition home or self-care (01) ==
LOC: ER 10:36
DX: T83.091A Other mechanical complication of indwelling urethral catheter, initial encounter (principal); N20.0 Calculus of kidney; N39.0 Urinary tract infection, site not specified; N21.0 Calculus in bladder; J84.10 Pulmonary fibrosis, unspecified; J98.19 Other pulmonary collapse; F17.200 Nicotine dependence, unspecified, uncomplicated; Z79.2 Long term (current) use of antibiotics; Z79.899 Other long term (current) drug therapy
CPT/HCPCS: 36415; 51702; 71045; 71250; 74176; 80048; 80076; 81000; 81001; 83690; 83880; 84484; 85025; 87086; 93005; 96365; 96375; 99285; J0692; J1170; J2405; J7060; 70030-TC; A4663; J7030

== ENCOUNTER 2019-06-18 09:19 | Emergency (ER) | payer MEDICAID ==
[~2019-06-18] VITALS: Ht 167.6 cm; Wt 59.0 kg
[2019-06-18] MEDS ORDERED: HYDROCODONE/APAP 5-325MG TABLET ONE (09:59)
[2019-06-18] MEDS ORDERED: HYDROCODONE/APAP 5-325MG TABLET PO ONE (10:00)
--- NOTE | 2019-06-18 10:02 | NUR ---
patient was seen by MD. medications given as ordred. patient is awake and alert, he is ambulatory, in no distress.
--- NOTE | 2019-06-18 10:43 | NUR ---
Dressing on supra pubic catheter changed. Site was clean and dry, no drainage, redness or swelling noted. patient was DC'd home via transportaion provided by [facility]. DC and follow up instructions given and explained to patient who states he understands all instructions.
== END 2019-06-18 10:47 | disposition home or self-care (01) ==
LOC: ER 09:22
DX: R10.9 Unspecified abdominal pain (principal); G89.29 Other chronic pain; F17.200 Nicotine dependence, unspecified, uncomplicated
CPT/HCPCS: A4663

== ENCOUNTER 2019-07-03 17:17 | Emergency (ER) | payer MEDICAID ==
[~2019-07-03] VITALS: Ht 167.6 cm; Wt 59.0 kg
[2019-07-03] MEDS ORDERED: HYDROCODONE/APAP 5-325MG TABLET ONE (18:06)
--- NOTE | 2019-07-03 18:08 | NUR ---
patient here for suprapubic catheter change. Patient states he will not allow change of catheter without pain medicine jakob. I notified Dr Mcgarry, pain med given as ordered.
[2019-07-03] MEDS ORDERED: HYDROCODONE/APAP 5-325MG TABLET PO ONE (18:15)
--- NOTE | 2019-07-03 18:51 | NUR ---
Rios catheter changed using asceptic technique. patient tolerated it well. Small amount of bleeding noted after insertion, at insertion site which stopped. Leg bag secured to left leg. Sterile gauze with tape applied around insertion site.
--- NOTE | 2019-07-03 18:52 | NUR ---
Dieter Culver to transport patient back to [facility] [id number]
--- NOTE | 2019-07-03 18:57 | NUR ---
hand off report given to [facility] [employer]
--- NOTE | 2019-07-03 19:17 | NUR ---
[facility] ambulance arrived to ER to transport patient back to [facility]. Report and documentation given to EMT.
[2019-07-03 19:21] VITALS: BP 125/77
== END 2019-07-03 19:21 ==
LOC: ER 17:23
DX: Z43.6 Encounter for attention to other artificial openings of urinary tract (principal); G40.909 Epilepsy, unspecified, not intractable, without status epilepticus; Z87.440 Personal history of urinary (tract) infections; F03.90 Unspecified dementia, unspecified severity, without behavioral disturbance, psychotic disturbance, mood disturbance, and anxiety
CPT/HCPCS: 51702; A4663

== ENCOUNTER 2019-07-09 09:00 | Emergency (ER) | payer MEDICAID ==
[~2019-07-09] VITALS: Ht 167.6 cm; Wt 59.0 kg
--- NOTE | 2019-07-09 09:10 | NUR ---
PT BIB [facility] FROM [facility] C/O INCREASED PAIN 8/10 AND LEAKAGE AT THE SUPRAPUBIC CATHETHER SITE. PT STATES THE PAIN STARTED LAST NIGHT WHILE LAYING IN BED.PT DENIES ANY PAIN. Patient is AOx3, speaking in complete sentences, speech is clear. Patient is able to follow /comprehend directions. Gait is stable. No cardiovascular distress noted. Rate and rhythm are regular. No CP. No respiratory distress noted. Respirations even & unlabored with symmetrical chest rise. No adventitious sounds noted. Patient is on bed. Bed is in lowest position. Siderails are up x 2. Call light within reach. Fall precautions implemented per hospital policy.
--- NOTE | 2019-07-09 10:08 | NUR ---
REQUESTED AMBLUANCE TRANSFER FROM [facility] 45 MIN . TRIP # [id number] SPOKE W/EVELYN.
--- NOTE | 2019-07-09 11:20 | NUR ---
Patient discharged to home in stable condition taken by sheri on a gurney. Written and verbal after care instructions given. Patient verbalizes understanding of instructions. Stressed follow up or return to ER for worsening s/s.All belongings w/patient.
[2019-07-09 11:27] VITALS: BP 95/60
== END 2019-07-09 11:20 ==
LOC: ER 09:00
DX: Z43.5 Encounter for attention to cystostomy (principal); G40.909 Epilepsy, unspecified, not intractable, without status epilepticus; Z91.81 History of falling; Z87.440 Personal history of urinary (tract) infections; F03.90 Unspecified dementia, unspecified severity, without behavioral disturbance, psychotic disturbance, mood disturbance, and anxiety

== ENCOUNTER 2019-07-13 14:40 | Emergency (ER) | payer MEDICAID ==
[~2019-07-13] VITALS: Ht 170.2 cm; Wt 56.7 kg
--- NOTE | 2019-07-13 15:30 | NUR ---
FLUSHE THE SUPRAPUBIC CATH WITHOUT DIFFICULTY/RESISTANCE Addendum: 07/13/19 at 1830 by ANNETTESO EMPTIED THE LEG BAG, 250 ML, REDRESSED THE UROSTOMY.
--- NOTE | 2019-07-13 16:00 | NUR ---
CALLED [facility] AT [phone], NO BODY RESPONDED. CALLED [facility], ANNA 1900, TRIP NUMBER [id number]. FOR BASIC AMBULANCE.
--- NOTE | 2019-07-13 19:25 | NUR ---
Patient discharged to home in stable condition. Written and verbal after care instructions given. Patient verbalizes understanding of instructions. Stressed follow up or return to ER for worsening s/s. Patient picked up by [facility] unit# 113. Patient ambulated to [facility] in stable gait.
[2019-07-13 19:39] VITALS: BP 97/64
== END 2019-07-13 19:25 ==
LOC: ER 14:40
DX: Z43.5 Encounter for attention to cystostomy (principal); F03.90 Unspecified dementia, unspecified severity, without behavioral disturbance, psychotic disturbance, mood disturbance, and anxiety; G40.909 Epilepsy, unspecified, not intractable, without status epilepticus; Z87.820 Personal history of traumatic brain injury; Z87.440 Personal history of urinary (tract) infections
CPT/HCPCS: A4663

== ENCOUNTER 2019-08-15 18:38 | Emergency (ER) | payer MEDICAID ==
[~2019-08-15] VITALS: Ht 170.2 cm; Wt 56.7 kg
[~2019-08-15 18:38] MED LIST changes: +CEFP100T9 PO; +LEVO500T2 PO
[2019-08-15] MEDS ORDERED: CEFI400C4 PO (18:59)
--- NOTE | 2019-08-15 19:00 | NUR ---
Dr. Mcgarry at bedside for MSE.
[2019-08-15] MEDS ORDERED: HYDROCODONE/APAP 10-325 MG TABLET ONE (19:04)
[2019-08-15] MEDS ORDERED: HYDROCODONE/APAP 10-325 MG TABLET PO ONE (19:15)
--- NOTE | 2019-08-15 19:35 | NUR ---
Inserted dubose catheter, changed to leg bag, pt tolerated procedure well, urine sample collected, sent to lab.
[2019-08-15 19:52] LABS: *BILIRUBIN,URIN NEGATIVE (NEGATIVE); *BLOOD, URINE 2+ (NEGATIVE); *CLARITY,URINE CLOUDY (CLEAR); *COLOR,URINE YELLOW (YELLOW); *KETONES,URINE NEGATIVE (NEGATIVE); *UROBILINOGEN,URINE 0.2 E.U./dl (NORMAL); LEUKOCYTE ESTERASE ,URINE 3+ (NEGATIVE); NITRITE, URINE NEGATIVE (NEGATIVE); UGLUCOSE NEGATIVE (NEGATIVE)
[2019-08-15 20:08] LABS: BACTERIA,URINE MODERATE /HPF (NONE SEEN); SQUAMOUS EPITHELIAL CELL,UR FEW /HPF (NONE SEEN); WBC,URINE TNTC /HPF (0-3)
[2019-08-15] MEDS ORDERED: levoFLOXacin 750 MG TABLET PO ONE (20:15)
[2019-08-15] MEDS ORDERED: levoFLOXacin 750 MG TABLET ONE (20:21)
[2019-08-15 20:54] LABS: BASOPHILS % (AUTO) 0.6 % (0.0-2.0); EOSINOPHILS # (AUTO) 0.1 K/uL (0.0-0.7); EOSINOPHILS % (AUTO) 1.3 % (0.0-7.0); HEMATOCRIT 38.8 % (36.7-47.1); HEMOGLOBIN 12.8 g/dL (12.5-16.3); LYMPHOCYTES # (AUTO) 1.5 K/uL (20.0-40.0); LYMPHOCYTES % (AUTO) 27.2 % (20.5-51.5); MEAN CORPUSCULAR HEMOGLOBIN 29.4 uug (23.8-33.4); MEAN CORPUSCULAR HGB CONC 33 g/dL (32.5-36.3); MONOCYTES # (AUTO) 0.7 K/uL (2.0-10.0); MONOCYTES % (AUTO) 13.3 % (0.0-11.0); NEUTROPHILS # (AUTO) 3.1 K/uL (1.8-8.9); NEUTROPHILS % (AUTO) 57.6 % (38.5-71.5); PLATELET COUNT (AUTO) 209 K/uL (152-348); RED BLOOD CELL COUNT(AUTO) 4.36 MIL/uL (4.06-5.63); WHITE BLOOD COUNT (AUTO) 5.5 K/uL (3.6-10.2)
[2019-08-15 21:33] LABS: BILIRUBIN,TOTAL 0.2 mg/dL (0.2-1.0); TOTAL PROTEIN, SERUM 7.2 g/dL (6.4-8.2)
--- NOTE | 2019-08-15 22:48 | NUR ---
Received call back from [facility], spoke with Timothy, Trip#[id number], eta 0030 for transport back to [facility].
--- NOTE | 2019-08-16 00:35 | NUR ---
[facility] arrived to ER to transport patient back to [facility]. Report and documentation given to EMT, VSS, all belongings taken, no acute signs of distress.
[2019-08-16 00:38] VITALS: BP 110/75
== END 2019-08-16 00:38 ==
LOC: ER 18:43
DX: T83.098A Other mechanical complication of other urinary catheter, initial encounter (principal); N39.0 Urinary tract infection, site not specified; G40.909 Epilepsy, unspecified, not intractable, without status epilepticus; Z87.440 Personal history of urinary (tract) infections; Z87.820 Personal history of traumatic brain injury; F03.90 Unspecified dementia, unspecified severity, without behavioral disturbance, psychotic disturbance, mood disturbance, and anxiety
CPT/HCPCS: 36415; 51702; 83605; 85025; 87040; 87086

== ENCOUNTER 2019-09-23 21:45 | Emergency (ER) | payer MEDICAID ==
[~2019-09-23] VITALS: Ht 172.7 cm; Wt 57.6 kg
[~2019-09-23 21:45] MED LIST changes: +CEFI400C4 PO; -LEVO500T2 PO
--- NOTE | 2019-09-23 21:50 | NUR ---
Dr. Huggins at bedside for MSE.
[2019-09-23] MEDS ORDERED: KETOROLAC TROMETHAMINE 30 MG INJ IM ONE (22:00)
[2019-09-23] MEDS ORDERED: KETOROLAC TROMETHAMINE 30 MG INJ ONE (22:03)
--- NOTE | 2019-09-23 22:15 | NUR ---
Called [facility] for transport back to [facility], eta 2300.
--- NOTE | 2019-09-23 22:50 | NUR ---
Report given to [facility] from [facility]. Ambulance is here, pending DC.
[2019-09-23 22:54] VITALS: BP 94/64
--- NOTE | 2019-09-23 23:00 | NUR ---
Patient discharged to home in stable condition. Written and verbal after care instructions given. Patient verbalizes understanding of instructions. Stressed follow up or return to ER for worsening s/s. Ambulance with 2 tree thinner will take pt back to [facility].
== END 2019-09-23 23:08 ==
LOC: ER 21:47
DX: T83.098A Other mechanical complication of other urinary catheter, initial encounter (principal); R33.9 Retention of urine, unspecified; G40.909 Epilepsy, unspecified, not intractable, without status epilepticus; Z87.820 Personal history of traumatic brain injury; F03.90 Unspecified dementia, unspecified severity, without behavioral disturbance, psychotic disturbance, mood disturbance, and anxiety; F17.210 Nicotine dependence, cigarettes, uncomplicated; R10.30 Lower abdominal pain, unspecified
CPT/HCPCS: 51705; 76857; 96372; 99284; 99406; C2627; J1885; A4663

== ENCOUNTER 2019-10-05 10:33 | Emergency (ER) | payer MEDICAID ==
[~2019-10-05] VITALS: Ht 172.7 cm; Wt 57.6 kg
[2019-10-05] MEDS ORDERED: HYDROMORPHONE 1 MG/1 ML DISP.SYRIN ONE (10:54)
[2019-10-05] MEDS ORDERED: ONDANSETRON ODT 4 MG TAB.RAPDIS SL ONE (11:00)
[2019-10-05] MEDS ORDERED: HYDROMORPHONE 1 MG/1 ML DISP.SYRIN IM ONE (11:00)
--- NOTE | 2019-10-05 11:20 | NUR ---
cleaned the area around the urostomy with ns. replaced the suprapubic cath 16 with new gauge 16 without difficulty. pt tolerated well, bordered dressing applied after cleaning around the stoma.
--- NOTE | 2019-10-05 11:33 | NUR ---
called for [facility] ambulance to transfer the pt back to residence. eta 1215.
--- NOTE | 2019-10-05 12:45 | NUR ---
[facility] at bedside .
[2019-10-05 12:52] VITALS: BP 106/55
== END 2019-10-05 12:59 ==
LOC: ER 10:33
DX: T83.090A Other mechanical complication of cystostomy catheter, initial encounter (principal); T83.030A Leakage of cystostomy catheter, initial encounter; G40.909 Epilepsy, unspecified, not intractable, without status epilepticus; F03.90 Unspecified dementia, unspecified severity, without behavioral disturbance, psychotic disturbance, mood disturbance, and anxiety; Z87.820 Personal history of traumatic brain injury
CPT/HCPCS: 51705; 96372; 99284; J1170; A4663